=== PATIENT | female | born 1930 | race Hispanic/Latino ===

== ENCOUNTER 2017-12-20 22:19 | Observation (INO) | payer OTHER ==
[~2017-12-20] VITALS: Ht 154.9 cm; Wt 74.7 kg
[2017-12-20] MEDS ORDERED: ONDANSETRON HCL 4 MG/2 ML VIAL ONE ×2 (23:08→23:58)
[2017-12-20 23:16] LABS: BASOPHILS % (AUTO) 0.4 % (0.0-5.0); CREATININE 1.6 mg/dL (0.5-1.5); HEMATOCRIT 32.9 % (36-48); LYMPHOCYTES % (AUTO) 8.3 % (21.0-51.0); MEAN CORPUSCULAR HGB CONC 33.6 g/dL (32.0-36.0); MEAN CORPUSCULAR VOLUME 80.4 fL (79-99); MONOCYTES % (AUTO) 6.5 % (3.0-13.0); NEUTROPHILS % (AUTO) 84.8 % (40.0-77.0); NUCLEATED RED BLOOD CELLS 0.1 % (0.0-0.19); PLATELET COUNT (AUTO) 231 K/uL (130-400); POTASSIUM 4.1 mmol/L (3.5-5.1); RED BLOOD CELL COUNT(AUTO) 4.09 MIL/uL (4.00-5.50); RED CELL DISTRIBUTION WIDTH 15.3 % (11.0-15.5); WHITE BLOOD COUNT (AUTO) 9.2 K/uL (4.8-10.8)
[2017-12-20 23:17] LABS: INR 0.93 (0.85-1.15); PARTIAL THROMBOPLASTIN TIME 26.6 SEC (26.3-35.5); PROTHROMBIN TIME 9.8 SEC (9.6-11.6)
[2017-12-20 23:20] LABS: ALBUMIN 2.9 g/dL (3.5-5.0); BILIRUBIN,TOTAL 0.3 mg/dL (0.2-1.0); TOTAL PROTEIN, SERUM 6.6 g/dL (6.0-8.3)
[2017-12-20] MEDS ORDERED: CEFTRIAXONE SODIUM 1 GM ONE (23:58)
[2017-12-20] MEDS ORDERED: SODIUM CHLORIDE 0.9% 1000ML 1,000 ML IV ONE (23:58)
[2017-12-20] MEDS ORDERED: SODIUM CHLORIDE 0.9% 100 ML IV ONE (23:59)
[2017-12-21] MEDS ORDERED: IPRATROPIUM/ALBUTEROL SULFATE 3 ML SOLUTION IH ONE ×2 (00:03→03:43)
[2017-12-21 00:13] LABS: OCCULT BLOOD,GASTRIC FLUID NEGATIVE (NEGATIVE)
[2017-12-21] MEDS ORDERED: SODIUM CHLORIDE 0.9% 100 ML IV ONE (00:22)
[2017-12-21] MEDS ORDERED: OCTREOTIDE ACETATE 100 MCG/ML AMP ONE (00:23)
[2017-12-21 01:26] VITALS: BP 150/60
[2017-12-21] MEDS ORDERED: SODIUM CHLORIDE 0.9% 1000ML 1,000 ML IV SCH (01:32)
[2017-12-21] MEDS ORDERED: CEFTRIAXONE 1GM/D5W 50ML 50 ML IV SCH (01:45)
[2017-12-21] MEDS ORDERED: AZITHROMYCIN 500MG+NS 250ML 250 ML IV SCH (01:45)
[2017-12-21] MEDS ORDERED: ACETAMINOPHEN 325 MG TAB PO PRN ×2 (01:45)
[2017-12-21] MEDS ORDERED: POTASSIUM CHLORIDE 10% ELIXIR 20 MEQ/15 ML UDCUP PO PRN (01:45)
[2017-12-21] MEDS ORDERED: ONDANSETRON HCL 4 MG/2 ML VIAL IV PRN (01:45)
[2017-12-21] MEDS ORDERED: POTASSIUM CHLORIDE 20MEQ/100ML 100 ML IV PRN (01:45)
[2017-12-21] MEDS ORDERED: POTASSIUM CHLORIDE 20 MEQ ERTAB PO PRN (01:45)
[2017-12-21] MEDS ORDERED: GUAIFENESIN-DM 200/20 MG 10 ML PO PRN (01:45)
[2017-12-21] MEDS ORDERED: HYDRALAZINE HCL 20 MG/ML VIAL IV PRN (01:45)
[2017-12-21] MEDS ORDERED: LIDOCAINE HCL-MPF 1% 2ML VIAL IVP PRN (01:45)
[2017-12-21] MEDS ORDERED: SODIUM CHLORIDE 0.9% 1000ML 1,000 ML IV ONE (02:19)
[2017-12-21] MEDS ORDERED: AZITHROMYCIN 500MG+NS 250ML 250 ML IV ONE (02:20)
[2017-12-21] MEDS ORDERED: OSELTAMIVIR PHOSPHATE 75 MG CAP ONE (02:21)
[2017-12-21 03:05] VITALS: BP 106/70
[2017-12-21 03:46] LABS: HEMATOCRIT 27.8 % (36-48); MEAN CORPUSCULAR HEMOGLOBIN 27.9 pg (27.0-33.0); MEAN CORPUSCULAR HGB CONC 34.4 g/dL (32.0-36.0); MEAN CORPUSCULAR VOLUME 81.1 fL (79-99); PLATELET COUNT (AUTO) 230 K/uL (130-400); RED BLOOD CELL COUNT(AUTO) 3.43 MIL/uL (4.00-5.50); RED CELL DISTRIBUTION WIDTH 15.5 % (11.0-15.5); WHITE BLOOD COUNT (AUTO) 8.5 K/uL (4.8-10.8)
[2017-12-21 03:50] LABS: CREATININE 1.7 mg/dL (0.5-1.5); POTASSIUM 3.7 mmol/L (3.5-5.1)
[2017-12-21] MEDS ORDERED: CEFTRIAXONE SODIUM 1 GM IVP SCH (04:00)
[2017-12-21] MEDS: IPRATROPIUM/ALBUTEROL SULFATE 3 ML SOLUTION IH SCH ×3 (06:06→17:59)
[2017-12-21] MEDS: INSULIN HUMULIN R 100 UNIT/ML 3ML SQ SCH ×3 (06:47→16:30)
[2017-12-21 08:00] VITALS: BP 121/67
[2017-12-21] MEDS ORDERED: FERR325T22 PO (08:28)
[2017-12-21] MEDS ORDERED: LEVO25TA54 PO (08:28)
[2017-12-21] MEDS ORDERED: FLUO20TA29 PO (08:28)
[2017-12-21] MEDS ORDERED: TRAM-355 PO (08:28)
[2017-12-21] MEDS ORDERED: METOPROLOL ER 25MG PO (08:28)
[2017-12-21] MEDS ORDERED: LOSA50TA37 PO (08:28)
[2017-12-21] MEDS ORDERED: FOLI1TAB15 PO (08:28)
[2017-12-21] MEDS ORDERED: CIPR-278 PO (08:28)
[2017-12-21] MEDS ORDERED: SIMV10TA6 PO (08:28)
[2017-12-21] MEDS ORDERED: PANT40TA25 PO (08:28)
[2017-12-21] MEDS ORDERED: GABA-529 PO (08:28)
[2017-12-21] MEDS ORDERED: METF-526 PO (08:28)
[2017-12-21] MEDS ORDERED: SULF1TAB42 PO (08:28)
[2017-12-21] MEDS ORDERED: OSELTAMIVIR PHOSPHATE 75 MG CAP PO SCH (09:00)
[2017-12-21] MEDS ORDERED: FAMOTIDINE 20MG TAB 20 MG TAB PO SCH ×2 (09:00→10:18)
[2017-12-21] MEDS ORDERED: OSEL75 PO (10:17)
[2017-12-21] MEDS ORDERED: LEVO500T2 PO (10:17)
[2017-12-21 11:24] VITALS: BP 134/87
[2017-12-21 15:56] VITALS: BP 117/52
[2017-12-21] MEDS ORDERED: SULFAMETHOX-TMP DS 800/160 TAB PO SCH (21:00)
[2017-12-21] MEDS ORDERED: ATORVASTATIN CALCIUM 10 MG TABLET PO SCH (21:00)
[2017-12-21] MEDS ORDERED: GABAPENTIN 100 MG CAPSULE PO SCH (21:00)
[2017-12-22] MEDS ORDERED: LEVOTHYROXINE 25 MCG TABLET PO SCH (07:30)
[2017-12-22] MEDS ORDERED: METFORMIN HCL 500 MG TAB.SR.24H PO SCH (08:00)
[2017-12-22] MEDS ORDERED: PANTOPRAZOLE SODIUM 40 MG TABLET.DR PO SCH (09:00)
[2017-12-22] MEDS ORDERED: FOLIC ACID 1 MG TABLET PO SCH (09:00)
[2017-12-22] MEDS ORDERED: FERROUS SULFATE 325 MG TABLET.DR PO SCH (09:00)
[2017-12-22] MEDS ORDERED: FLUOXETINE HCL 20 MG CAPSULE PO SCH (09:00)
[2017-12-22] MEDS ORDERED: LOSARTAN 50 MG TABLET PO SCH (09:00)
[2017-12-22] MEDS ORDERED: METOPROLOL TARTRATE 25 MG TAB PO SCH (09:00)
[2018-03-28] MEDS ORDERED: FERR15DR21 PO (12:17)
== END 2017-12-21 18:59 | disposition home or self-care (01) ==
LOC: EDH 22:19 → EDHIP 12-21 00:11 → 3BH 12-21 00:31
PROVIDERS: ADMIT Internal Medicine; ATTEND Internal Medicine
DX: J10.1 Influenza due to other identified influenza virus with other respiratory manifestations (principal); J20.9 Acute bronchitis, unspecified; N17.9 Acute kidney failure, unspecified; E11.65 Type 2 diabetes mellitus with hyperglycemia; E78.5 Hyperlipidemia, unspecified; I10 Essential (primary) hypertension; M81.0 Age-related osteoporosis without current pathological fracture
CPT/HCPCS: 36415 ×2; 71045; 71250; 80048; 80053; 82271 ×2; 82550; 82948 ×3; 83880; 84484; 85025; 85027; 85610; 85730; 87804 ×2; 93005; 94640 ×4; 94664; 97161; 99291; G0378 ×19; G8978; G8979; G8980; G8981; G8982; G8983; J0456; J0696 ×2; J2354; J2405 ×2; J7030 ×2

== ENCOUNTER 2017-12-29 19:19 | Observation (INO) | payer OTHER ==
[~2017-12-29] VITALS: Ht 152.4 cm; Wt 76.3 kg
[~2017-12-29 19:19] MED LIST: FERR325T22 PO; FLUO20TA29 PO; FOLI1TAB15 PO; GABA-529 PO; LEVO25TA54 PO; LEVO500T2 PO; LOSA50TA37 PO; METF-526 PO; METOPROLOL ER 25MG PO; OSEL75 PO; PANT40TA25 PO; SIMV10TA6 PO; TRAM-355 PO
[2017-12-29 20:03] LABS: BILIRUBIN,URINE Negative (NEGATIVE); COLOR,URINE Yellow (YELLOW); GLUCOSE, URINE (UA) Negative (NEGATIVE); KETONES,URINE Negative (NEGATIVE); LEUKOCYTE ESTERASE ,URINE Moderate (NEGATIVE); NITRATE,URINE Negative (NEGATIVE); OCCULT BLOOD,URINE Negative (NEGATIVE); PROTEIN,URINE Negative (NEGATIVE); UROBILINOGEN,URINE 0.2 mg/dL (0.2-1.0)
[2017-12-29 20:04] LABS: BASOPHILS % (AUTO) 0.3 % (0.0-5.0); HEMATOCRIT 28.9 % (36-48); MEAN CORPUSCULAR HEMOGLOBIN 29.4 pg (27.0-33.0); MEAN CORPUSCULAR HGB CONC 36.6 g/dL (32.0-36.0); MEAN CORPUSCULAR VOLUME 80.2 fL (79-99); MONOCYTES % (AUTO) 6.1 % (3.0-13.0); NEUTROPHILS % (AUTO) 89.6 % (40.0-77.0); PLATELET COUNT (AUTO) 333 K/uL (130-400); RED BLOOD CELL COUNT(AUTO) 3.61 MIL/uL (4.00-5.50); RED CELL DISTRIBUTION WIDTH 15.9 % (11.0-15.5); WHITE BLOOD COUNT (AUTO) 20.6 K/uL (4.8-10.8)
[2017-12-29 20:06] LABS: APPEARANCE,URINE SLIGHTLY CLOUDY (CLEAR)
[2017-12-29 20:22] LABS: BACTERIA,URINE Few /HPF (None Seen); CREATININE 1.9 mg/dL (0.5-1.5); POTASSIUM 3.4 mmol/L (3.5-5.1); RBC,URINE 0-1 /HPF (0-1); SQUAMOUS EPITHELIAL CELL,UR Few /LPF (0-2)
[2017-12-29 20:23] LABS: AMORPHOUS SEDIMENT,UR Rare /LPF (None Seen)
[2017-12-29 20:26] LABS: ALBUMIN 2.7 g/dL (3.5-5.0); BILIRUBIN,TOTAL 0.4 mg/dL (0.2-1.0); TOTAL PROTEIN, SERUM 6.2 g/dL (6.0-8.3)
[2017-12-29] MEDS ORDERED: SODIUM CHLORIDE 0.9% 1000ML 2,000 ML IV ONE (20:26)
[2017-12-29] MEDS ORDERED: SODIUM CHLORIDE 0.9% 500ML 500 ML IV ONE (20:26)
[2017-12-29] MEDS ORDERED: MEROPENEM 1 GM VIAL ONE (20:28)
[2017-12-29] MEDS ORDERED: WATER FOR INJECTION,STERILE 20 ML VIAL ONE (20:28)
[2017-12-29] MEDS ORDERED: ONDANSETRON HCL 4 MG/2 ML VIAL ONE (21:28)
[2017-12-29] MEDS ORDERED: MORPHINE SULFATE 2 MG/ML 1ML SYG ONE (21:28)
[2017-12-29] MEDS ORDERED: NITROGLYCERIN 0.4 MG SL TAB SL PRN (23:45)
[2017-12-29] MEDS ORDERED: LACTULOSE 20 GM/30 ML UDCUP PO PRN (23:45)
[2017-12-29] MEDS ORDERED: SODIUM CHLORIDE 0.9% 1000ML 1,000 ML IV SCH (23:45)
[2017-12-29] MEDS ORDERED: LEVOFLOXACIN 500 MG/D5W 100 ML 100 ML IV SCH (23:45)
[2017-12-29] MEDS ORDERED: ACETAMINOPHEN 325 MG TAB PO PRN (23:45)
[2017-12-29] MEDS ORDERED: GUAIFENESIN-DM 200/20 MG 10 ML PO PRN (23:45)
[2017-12-29] MEDS ORDERED: CLONIDINE HCL 0.1 MG TABLET PO PRN (23:45)
[2017-12-29 23:46] VITALS: BP 133/72
[2017-12-30 00:01] LABS: BAND NEUTROPHILS % (MANUAL) 4 % (0-2); LYMPHOCYTES % (MANUAL) 5 % (22-44); MAN.DIFF COMMENT-IMPRESSION MANUAL DIFFERENTIAL; MONOCYTES % (MANUAL) 9 % (2-9); SEGMENTED NEUTROPHILS % 82 % (40-70)
[2017-12-30 00:02] LABS: PLATELET MORPHOLOGY COMMENT ADEQUATE
[2017-12-30] MEDS: IPRATROPIUM/ALBUTEROL SULFATE 3 ML SOLUTION IH SCH ×4 (00:05→18:44)
[2017-12-30] MEDS ORDERED: DOXY100V2 IV (00:11)
[2017-12-30] MEDS ORDERED: ASPI-555 PO (00:11)
[2017-12-30] MEDS ORDERED: CETI10CA5 PO (00:11)
[2017-12-30] MEDS ORDERED: POTASSIUM CHLORIDE 20 MEQ ERTAB PO PRN (00:15)
[2017-12-30] MEDS ORDERED: POTASSIUM CHLORIDE 20MEQ/100ML 100 ML IV PRN (00:15)
[2017-12-30] MEDS ORDERED: GLUCAGON 1MG KIT 1 MG ML IM PRN (00:15)
[2017-12-30] MEDS ORDERED: LIDOCAINE HCL-MPF 1% 2ML VIAL IVP PRN (00:15)
[2017-12-30] MEDS ORDERED: DEXTROSE 50%-WATER 50 ML DISP.SYRIN IV PRN (00:15)
[2017-12-30] MEDS ORDERED: POTASSIUM CHLORIDE 10% ELIXIR 20 MEQ/15 ML UDCUP PO PRN (00:15)
[2017-12-30 03:33] VITALS: BP 119/53
[2017-12-30 05:20] LABS: MEAN CORPUSCULAR HEMOGLOBIN 27.1 pg (27.0-33.0); MEAN CORPUSCULAR HGB CONC 33.4 g/dL (32.0-36.0); MEAN CORPUSCULAR VOLUME 81.1 fL (79-99); PLATELET COUNT (AUTO) 336 K/uL (130-400); RED BLOOD CELL COUNT(AUTO) 3.58 MIL/uL (4.00-5.50); RED CELL DISTRIBUTION WIDTH 16.7 % (11.0-15.5); WHITE BLOOD COUNT (AUTO) 20.4 K/uL (4.8-10.8)
[2017-12-30] MEDS: INSULIN HUMULIN R 100 UNIT/ML 3ML SQ SCH ×4 (05:30→21:00)
[2017-12-30 05:43] LABS: CARBON DIOXIDE 25 mmol/L (21-32); CHLORIDE 101 mmol/L (101-111); CREATINE KINASE MB < 0.5 ng/mL (0.5-3.6); CREATINE KINASE, TOTAL 14 U/L (21-232); CREATININE 1.5 mg/dL (0.5-1.5); GLOMERULAR FILTR. RATE CALC 35 mL/min (>60); GLUCOSE,RANDOM 159 mg/dL (70-105); MYOGLOBIN 42 ng/mL (10-92); POTASSIUM 3.5 mmol/L (3.5-5.1); SODIUM SERUM 138 mmol/L (136-145); TROPONIN I < 0.04 ng/mL (0.00-0.06); UREA NITROGEN, BLOOD 37 mg/dL (7-18)
[2017-12-30 07:00] VITALS: BP 104/48
[2017-12-30] MEDS: METOPROLOL TARTRATE 25 MG TAB PO SCH ×2 (09:39→21:42)
[2017-12-30] MEDS: FLUOXETINE HCL 20 MG CAPSULE PO SCH (09:39)
[2017-12-30] MEDS: ACETAMINOPHEN 325 MG TAB PO PRN ×2 (09:39→15:05)
[2017-12-30] MEDS: FAMOTIDINE 20MG TAB 20 MG TAB PO SCH (09:39)
[2017-12-30] MEDS: FERROUS SULFATE 325 MG TABLET.DR PO SCH (09:39)
[2017-12-30] MEDS: ENOXAPARIN SODIUM 30 MG/0.3 ML SQ SCH (09:40)
[2017-12-30] MEDS ORDERED: ONDANSETRON HCL 4 MG/2 ML VIAL ONE (09:51)
[2017-12-30 12:07] VITALS: BP 144/66
[2017-12-30 16:00] VITALS: BP 138/59
[2017-12-30 19:44] VITALS: BP 128/70
[2017-12-30] MEDS ORDERED: ATORVASTATIN CALCIUM 10 MG TABLET PO SCH (21:00)
[2017-12-30] MEDS: GABAPENTIN 100 MG CAPSULE PO SCH (21:42)
[2017-12-30 23:48] VITALS: BP 133/69
[2017-12-31] MEDS: IPRATROPIUM/ALBUTEROL SULFATE 3 ML SOLUTION IH SCH ×3 (00:25→11:09)
[2017-12-31 03:39] VITALS: BP 126/55
[2017-12-31 04:50] LABS: MEAN CORPUSCULAR HGB CONC 34.1 g/dL (32.0-36.0); PLATELET COUNT (AUTO) 309 K/uL (130-400); RED BLOOD CELL COUNT(AUTO) 3.05 MIL/uL (4.00-5.50); RED CELL DISTRIBUTION WIDTH 16.6 % (11.0-15.5); WHITE BLOOD COUNT (AUTO) 12.8 K/uL (4.8-10.8)
[2017-12-31 04:58] LABS: CREATININE 1.2 mg/dL (0.5-1.5); POTASSIUM 3.8 mmol/L (3.5-5.1)
[2017-12-31 05:44] LABS: B-TYPE NATRIURETIC PEPTIDE 51 pg/mL (0-100)
[2017-12-31] MEDS: INSULIN HUMULIN R 100 UNIT/ML 3ML SQ SCH (06:46)
[2017-12-31 07:00] VITALS: BP 134/61
[2017-12-31] MEDS ORDERED: LEVOTHYROXINE 25 MCG TABLET PO SCH (07:30)
[2017-12-31] MEDS: FERROUS SULFATE 325 MG TABLET.DR PO SCH (08:00)
[2017-12-31] MEDS ORDERED: LOSARTAN 50 MG TABLET PO SCH (09:00)
[2017-12-31] MEDS ORDERED: FOLIC ACID 1 MG TABLET PO SCH (09:00)
[2017-12-31] MEDS ORDERED: ASPIRIN 81 MG EC TAB PO SCH (09:00)
[2017-12-31] MEDS ORDERED: CETIRIZINE HCL 5 MG TABLET PO SCH (09:00)
[2017-12-31] MEDS ORDERED: PANTOPRAZOLE SODIUM 40 MG TABLET.DR PO SCH (09:00)
[2017-12-31] MEDS: FLUOXETINE HCL 20 MG CAPSULE PO SCH (09:33)
[2017-12-31] MEDS: METOPROLOL TARTRATE 25 MG TAB PO SCH (09:34)
[2017-12-31] MEDS: FAMOTIDINE 20MG TAB 20 MG TAB PO SCH (09:34)
[2017-12-31] MEDS: GABAPENTIN 100 MG CAPSULE PO SCH (09:34)
[2017-12-31] MEDS: ENOXAPARIN SODIUM 30 MG/0.3 ML SQ SCH (09:47)
[2017-12-31 11:00] VITALS: BP 116/48
[2018-03-28] MEDS ORDERED: FERR15DR21 PO (12:17)
== END 2017-12-31 17:45 ==
LOC: EDH 19:19 → EDHIP 22:44 → 2AH 23:17
PROVIDERS: ADMIT Family Medicine; ATTEND Family Medicine
DX: R53.1 Weakness (principal); N39.0 Urinary tract infection, site not specified; M54.6 Pain in thoracic spine; E86.0 Dehydration; J40 Bronchitis, not specified as acute or chronic; J11.1 Influenza due to unidentified influenza virus with other respiratory manifestations; J90 Pleural effusion, not elsewhere classified; K21.9 Gastro-esophageal reflux disease without esophagitis; I25.10 Atherosclerotic heart disease of native coronary artery without angina pectoris; I10 Essential (primary) hypertension; E78.5 Hyperlipidemia, unspecified; E11.9 Type 2 diabetes mellitus without complications; M81.0 Age-related osteoporosis without current pathological fracture
CPT/HCPCS: 36415 ×3; 71045; 72128; 78582; 80048 ×2; 80053; 81001; 82550; 82553; 82948 ×6; 83605 ×2; 83874; 83880 ×2; 84484; 85007; 85025; 85027 ×2; 85651; 87040 ×2; 87088; 92610; 93005 ×2; 94640 ×7; 94664; 96361 ×2; 96365; 96372 ×2; 97116; 97161; 99285; A9540; A9558; G0378 ×43; G8978; G8979; G8980; G8981; G8982; G8983; J1650 ×2; J1956; J2185; J2405 ×2; J7030; J7040

== ENCOUNTER 2018-01-16 18:01 | Inpatient (IN) | payer OTHER ==
[~2018-01-16] VITALS: Ht 152.4 cm; Wt 74.9 kg
[~2018-01-16 18:01] MED LIST changes: +ASPI-555 PO; +CETI10CA5 PO; +DOXY100V2 IV; -LEVO500T2 PO; -OSEL75 PO
[2018-01-16] MEDS ORDERED: LACTATED RINGERS 1000ML 1,000 ML IV ONE (22:18)
[2018-01-16] MEDS: INSULIN HUMULIN R 100 UNIT/ML 3ML SQ SCH (23:45)
[2018-01-16] MEDS ORDERED: POTASSIUM CHLORIDE 20 MEQ ERTAB PO PRN (23:45)
[2018-01-16] MEDS ORDERED: GLUCAGON 1MG KIT 1 MG ML IM PRN (23:45)
[2018-01-16] MEDS ORDERED: DEXTROSE 50%-WATER 50 ML DISP.SYRIN IV PRN (23:45)
[2018-01-16] MEDS ORDERED: HYDRALAZINE HCL 20 MG/ML VIAL IV PRN (23:45)
[2018-01-16] MEDS ORDERED: POTASSIUM CHLORIDE 10% ELIXIR 20 MEQ/15 ML UDCUP PO PRN (23:45)
[2018-01-16] MEDS ORDERED: ONDANSETRON HCL 4 MG/2 ML VIAL IV PRN (23:45)
[2018-01-17] VITALS (7 sets, daily range): BP systolic 129–163; BP diastolic 52–74
[2018-01-17] LABS: BASOPHILS % (AUTO) 1.2 % (0.0-5.0); EOSINOPHILS % (AUTO) 5.5 % (0.0-8.0); HEMATOCRIT 24.9 % (36-48); LYMPHOCYTES % (AUTO) 20.6 % (21.0-51.0); MEAN CORPUSCULAR HEMOGLOBIN 27.1 pg (27.0-33.0); MEAN CORPUSCULAR HGB CONC 33.4 g/dL (32.0-36.0); MEAN CORPUSCULAR VOLUME 81.1 fL (79-99); MONOCYTES % (AUTO) 7.1 % (3.0-13.0); NEUTROPHILS % (AUTO) 65.6 % (40.0-77.0); PLATELET COUNT (AUTO) 293 K/uL (130-400); RED BLOOD CELL COUNT(AUTO) 3.07 MIL/uL (4.00-5.50); RED CELL DISTRIBUTION WIDTH 16.1 % (11.0-15.5); WHITE BLOOD COUNT (AUTO) 5.2 K/uL (4.8-10.8)
[2018-01-17 00:17] LABS: INR 1.04 (0.85-1.15); PROTHROMBIN TIME 10.9 SEC (9.6-11.6)
[2018-01-17 00:19] LABS: ALBUMIN 2.3 g/dL (3.5-5.0); BILIRUBIN,TOTAL 0.4 mg/dL (0.2-1.0); TOTAL PROTEIN, SERUM 5.9 g/dL (6.0-8.3)
[2018-01-17 00:22] LABS: POTASSIUM 2.9 mmol/L (3.5-5.1)
[2018-01-17] MEDS: LIDOCAINE HCL-MPF 1% 2ML VIAL IVP PRN ×2 (00:42→06:37)
[2018-01-17] MEDS: POTASSIUM CHLORIDE 20MEQ/100ML 100 ML IV PRN ×2 (00:42→06:38)
[2018-01-17] MEDS: SODIUM CHLORIDE 0.9% 1000ML 1,000 ML IV SCH ×2 (00:48→18:47)
[2018-01-17] MEDS: INSULIN HUMULIN R 100 UNIT/ML 3ML SQ SCH ×4 (05:45→22:01)
[2018-01-17] MEDS ORDERED: ZINC56.7 TP (08:22)
[2018-01-17] MEDS ORDERED: ACET-2247 PO (08:22)
[2018-01-17] MEDS ORDERED: GUAIFDM PO (08:22)
[2018-01-17] MEDS ORDERED: LACT10SO9 PO (08:22)
[2018-01-17] MEDS ORDERED: LORA10CA9 PO (08:22)
[2018-01-17] MEDS ORDERED: ALBU2.5V2 IH (08:22)
[2018-01-17] MEDS ORDERED: ONDA4TAB4 PO (08:22)
[2018-01-17] MEDS ORDERED: FOLI1TAB15 PO (08:22)
[2018-01-17] MEDS ORDERED: TRAMADOL /APAP 37.5MG/325MG TAB PO PRN (08:45)
[2018-01-17] MEDS: FLUOXETINE HCL 20 MG CAPSULE PO SCH (09:00)
[2018-01-17] MEDS: GABAPENTIN 100 MG CAPSULE PO SCH ×2 (09:00→21:00)
[2018-01-17] MEDS: FOLIC ACID 1 MG TABLET PO SCH (09:00)
[2018-01-17] MEDS: LOSARTAN 50 MG TABLET PO SCH (09:00)
[2018-01-17] MEDS: METOPROLOL TARTRATE 25 MG TAB PO SCH ×2 (09:00→21:00)
[2018-01-17] MEDS: FLUCONAZOLE 200 MG/NS 100 ML 100 ML IV SCH (10:35)
[2018-01-17] MEDS: FAMOTIDINE/PF 20 MG/2 ML VIAL IV SCH ×2 (10:35→22:01)
[2018-01-17] MEDS: NYSTATIN 100000 UNIT/ML 5ML UDCUP PO SCH ×3 (13:00→22:01)
[2018-01-17] MEDS: ATORVASTATIN CALCIUM 10 MG TABLET PO SCH (21:00)
[2018-01-18] VITALS (22 sets, daily range): BP systolic 132–169; BP diastolic 50–71
[2018-01-18 04:35] LABS: HEMATOCRIT 24.6 % (36-48); PLATELET COUNT (AUTO) 265 K/uL (130-400); RED BLOOD CELL COUNT(AUTO) 3.07 MIL/uL (4.00-5.50); RED CELL DISTRIBUTION WIDTH 16.2 % (11.0-15.5); WHITE BLOOD COUNT (AUTO) 5.2 K/uL (4.8-10.8)
[2018-01-18 04:40] LABS: CREATININE 0.8 mg/dL (0.5-1.5); POTASSIUM 3.1 mmol/L (3.5-5.1)
[2018-01-18] MEDS: LEVOTHYROXINE 25 MCG TABLET PO SCH (04:54)
[2018-01-18] MEDS: INSULIN HUMULIN R 100 UNIT/ML 3ML SQ SCH ×3 (05:45→23:45)
[2018-01-18] MEDS: SODIUM CHLORIDE 0.9% 1000ML 1,000 ML IV SCH (06:07)
[2018-01-18] MEDS: POTASSIUM CHLORIDE 20MEQ/100ML 100 ML IV PRN ×2 (06:38→12:24)
[2018-01-18] MEDS: LOSARTAN 50 MG TABLET PO SCH (09:00)
[2018-01-18] MEDS: FOLIC ACID 1 MG TABLET PO SCH (09:00)
[2018-01-18] MEDS: GABAPENTIN 100 MG CAPSULE PO SCH ×2 (09:00→21:00)
[2018-01-18] MEDS: METOPROLOL TARTRATE 25 MG TAB PO SCH ×2 (09:00→21:00)
[2018-01-18] MEDS: FLUOXETINE HCL 20 MG CAPSULE PO SCH (09:00)
[2018-01-18] MEDS: FAMOTIDINE/PF 20 MG/2 ML VIAL IV SCH ×3 (09:34→21:36)
[2018-01-18] MEDS: FLUCONAZOLE 200 MG/NS 100 ML 100 ML IV SCH (09:34)
[2018-01-18] MEDS: NYSTATIN 100000 UNIT/ML 5ML UDCUP PO SCH ×3 (09:37→21:00)
[2018-01-18] MEDS ORDERED: FENTANYL CITRATE PF 50 MCG/1 ML 2ML VIAL ONE (14:56)
[2018-01-18] MEDS ORDERED: PROPOFOL 10 MG/ML 20ML VIAL IV ONE (14:57)
[2018-01-18] MEDS ORDERED: LIDOCAINE HCL 2% 20ML ONE (14:57)
[2018-01-18] MEDS: MORPHINE SULFATE 2 MG/ML 1ML SYG IV PRN (16:34)
[2018-01-18] MEDS: ATORVASTATIN CALCIUM 10 MG TABLET PO SCH (21:00)
[2018-01-18] MEDS ORDERED: D5W-1/2 NS/20MEQ KCL 1,000 ML IV SCH (22:45)
[2018-01-18] MEDS ORDERED: DEXTROSE 5 %-0.45 % NACL 0 ML IV ONE (22:46)
[2018-01-19 04:11] VITALS: BP 138/62
[2018-01-19] MEDS: INSULIN HUMULIN R 100 UNIT/ML 3ML SQ SCH ×4 (05:45→23:45)
[2018-01-19] MEDS: LEVOTHYROXINE 25 MCG TABLET PO SCH (06:03)
[2018-01-19 07:08] LABS: CREATININE 0.8 mg/dL (0.5-1.5); POTASSIUM 3.5 mmol/L (3.5-5.1)
[2018-01-19 08:00] VITALS: BP 179/70
[2018-01-19] MEDS: FLUCONAZOLE 200 MG/NS 100 ML 100 ML IV SCH (08:04)
[2018-01-19] MEDS: GABAPENTIN 100 MG CAPSULE PO SCH ×2 (09:00→20:12)
[2018-01-19] MEDS: METOPROLOL TARTRATE 25 MG TAB PO SCH ×2 (09:00→20:12)
[2018-01-19] MEDS: FOLIC ACID 1 MG TABLET PO SCH (09:00)
[2018-01-19] MEDS: LOSARTAN 50 MG TABLET PO SCH (09:00)
[2018-01-19] MEDS ORDERED: METOPROLOL TARTRATE 1 MG/ML 5ML VIAL IV PRN (09:00)
[2018-01-19 11:24] VITALS: BP 153/71
[2018-01-19] MEDS: FLUOXETINE HCL 20 MG CAPSULE PO SCH (12:18)
[2018-01-19] MEDS: CLINIMIX E 4.25%-5% SOLUTION 2,000 ML IV SCH (12:32)
[2018-01-19] MEDS: FAT EMULSIONS 20% 250ML 250 ML IV SCH (12:32)
[2018-01-19] MEDS: NYSTATIN 100000 UNIT/ML 5ML UDCUP PO SCH ×4 (12:33→20:12)
[2018-01-19 15:49] VITALS: BP 180/77
[2018-01-19] MEDS: MORPHINE SULFATE 2 MG/ML 1ML SYG IV PRN (17:02)
[2018-01-19 20:00] VITALS: BP 151/67
[2018-01-19] MEDS: ATORVASTATIN CALCIUM 10 MG TABLET PO SCH (20:12)
[2018-01-19 23:52] VITALS: BP 136/60
[2018-01-20] MEDS: LEVOTHYROXINE 25 MCG TABLET PO SCH (03:57)
[2018-01-20 04:00] VITALS: BP 125/57
[2018-01-20] MEDS: INSULIN HUMULIN R 100 UNIT/ML 3ML SQ SCH ×4 (05:45→23:45)
[2018-01-20 06:43] LABS: HEMATOCRIT 23.9 % (36-48); MEAN CORPUSCULAR HEMOGLOBIN 28.4 pg (27.0-33.0); MEAN CORPUSCULAR HGB CONC 36.2 g/dL (32.0-36.0); MEAN CORPUSCULAR VOLUME 78.3 fL (79-99); PLATELET COUNT (AUTO) 236 K/uL (130-400); RED BLOOD CELL COUNT(AUTO) 3.05 MIL/uL (4.00-5.50); RED CELL DISTRIBUTION WIDTH 16.5 % (11.0-15.5); WHITE BLOOD COUNT (AUTO) 4.5 K/uL (4.8-10.8)
[2018-01-20 06:48] LABS: CREATININE 0.8 mg/dL (0.5-1.5); POTASSIUM 3.2 mmol/L (3.5-5.1)
[2018-01-20 08:22] VITALS: BP 135/60
[2018-01-20 08:56] LABS: INR 1.07 (0.85-1.15); PARTIAL THROMBOPLASTIN TIME 28.9 SEC (26.3-35.5); PROTHROMBIN TIME 11.2 SEC (9.6-11.6)
[2018-01-20] MEDS: METOPROLOL TARTRATE 25 MG TAB PO SCH ×2 (09:00→21:00)
[2018-01-20] MEDS: PANTOPRAZOLE 40 MG/VIAL IVP SCH ×2 (09:00→14:32)
[2018-01-20] MEDS: GABAPENTIN 100 MG CAPSULE PO SCH ×2 (09:00→21:00)
[2018-01-20] MEDS ORDERED: PANTOPRAZOLE SODIUM 40 MG TABLET.DR PO SCH (09:00)
[2018-01-20] MEDS: LOSARTAN 50 MG TABLET PO SCH (09:00)
[2018-01-20] MEDS: FOLIC ACID 1 MG TABLET PO SCH (09:00)
[2018-01-20] MEDS: CLINIMIX E 4.25%-5% SOLUTION 2,000 ML IV SCH ×2 (09:00→19:45)
[2018-01-20] MEDS: FLUOXETINE HCL 20 MG CAPSULE PO SCH (09:00)
[2018-01-20] MEDS: FLUCONAZOLE 200 MG/NS 100 ML 100 ML IV SCH ×2 (09:00→14:32)
[2018-01-20] MEDS: NYSTATIN 100000 UNIT/ML 5ML UDCUP PO SCH ×4 (09:00→21:00)
[2018-01-20] MEDS: FAT EMULSIONS 20% 250ML 250 ML IV SCH ×2 (10:00→18:01)
[2018-01-20 17:44] VITALS: BP 135/62
[2018-01-20 20:00] VITALS: BP 147/58
[2018-01-20] MEDS: ATORVASTATIN CALCIUM 10 MG TABLET PO SCH (21:00)
[2018-01-20 23:55] VITALS: BP 139/82
[2018-01-21 04:00] VITALS: BP 129/61
[2018-01-21 05:19] LABS: HEMATOCRIT 25.2 % (36-48); MEAN CORPUSCULAR HEMOGLOBIN 26.7 pg (27.0-33.0); MEAN CORPUSCULAR HGB CONC 33.7 g/dL (32.0-36.0); MEAN CORPUSCULAR VOLUME 79.4 fL (79-99); PLATELET COUNT (AUTO) 209 K/uL (130-400); RED BLOOD CELL COUNT(AUTO) 3.18 MIL/uL (4.00-5.50); RED CELL DISTRIBUTION WIDTH 16.3 % (11.0-15.5); WHITE BLOOD COUNT (AUTO) 4.6 K/uL (4.8-10.8)
[2018-01-21 05:32] LABS: BAND NEUTROPHILS % (MANUAL) 1 % (0-2); EOSINOPHILS % (MANUAL) 4 % (1-6); LYMPHOCYTES % (MANUAL) 11 % (22-44); MAN.DIFF COMMENT-IMPRESSION MANUAL DIFFERENTIAL; MONOCYTES % (MANUAL) 8 % (2-9); PLATELET MORPHOLOGY COMMENT ADEQUATE; SEGMENTED NEUTROPHILS % 76 % (40-70)
[2018-01-21 05:37] LABS: ALBUMIN 2.1 g/dL (3.5-5.0); BILIRUBIN,TOTAL 0.4 mg/dL (0.2-1.0); CREATININE 0.9 mg/dL (0.5-1.5); MAGNESIUM 1.3 mg/dL (1.80-2.40); PHOSPHORUS 3.2 mg/dL (2.5-4.9); POTASSIUM 3.3 mmol/L (3.5-5.1); TOTAL PROTEIN, SERUM 5.5 g/dL (6.0-8.3)
[2018-01-21] MEDS: INSULIN HUMULIN R 100 UNIT/ML 3ML SQ SCH ×4 (05:45→23:45)
[2018-01-21] MEDS: LEVOTHYROXINE 25 MCG TABLET PO SCH (06:21)
[2018-01-21] MEDS: POTASSIUM CHLORIDE 20MEQ/100ML 100 ML IV PRN ×2 (06:56→10:35)
[2018-01-21] MEDS: FLUOXETINE HCL 20 MG CAPSULE PO SCH (09:00)
[2018-01-21] MEDS: METOPROLOL TARTRATE 25 MG TAB PO SCH ×2 (09:00→20:43)
[2018-01-21] MEDS: GABAPENTIN 100 MG CAPSULE PO SCH ×2 (09:00→20:43)
[2018-01-21] MEDS: NYSTATIN 100000 UNIT/ML 5ML UDCUP PO SCH ×3 (09:00→20:43)
[2018-01-21] MEDS: FOLIC ACID 1 MG TABLET PO SCH (09:00)
[2018-01-21] MEDS: LOSARTAN 50 MG TABLET PO SCH (09:00)
[2018-01-21] MEDS: PANTOPRAZOLE 40 MG/VIAL IVP SCH (10:08)
[2018-01-21] MEDS: FLUCONAZOLE 200 MG/NS 100 ML 100 ML IV SCH (10:08)
[2018-01-21] MEDS: LIDOCAINE HCL-MPF 1% 2ML VIAL IVP PRN (10:35)
[2018-01-21 11:53] VITALS: BP 125/65
[2018-01-21] MEDS ORDERED: PROCALAMINE IV SOLUTION 1,000 ML IV SCH (16:15)
[2018-01-21 17:04] VITALS: BP 134/64
[2018-01-21 20:00] VITALS: BP 142/64
[2018-01-21] MEDS: ATORVASTATIN CALCIUM 10 MG TABLET PO SCH (20:42)
[2018-01-21 23:38] VITALS: BP 125/54
[2018-01-22 03:54] VITALS: BP 131/51
[2018-01-22 04:53] LABS: HEMATOCRIT 24.8 % (36-48); MEAN CORPUSCULAR HEMOGLOBIN 27.4 pg (27.0-33.0); MEAN CORPUSCULAR HGB CONC 34.6 g/dL (32.0-36.0); MEAN CORPUSCULAR VOLUME 79.1 fL (79-99); PLATELET COUNT (AUTO) 187 K/uL (130-400); RED BLOOD CELL COUNT(AUTO) 3.13 MIL/uL (4.00-5.50); RED CELL DISTRIBUTION WIDTH 15.9 % (11.0-15.5)
[2018-01-22 05:01] LABS: CREATININE 0.9 mg/dL (0.5-1.5); POTASSIUM 4.2 mmol/L (3.5-5.1)
[2018-01-22] MEDS: INSULIN HUMULIN R 100 UNIT/ML 3ML SQ SCH ×3 (05:45→17:45)
[2018-01-22] MEDS: LEVOTHYROXINE 25 MCG TABLET PO SCH (06:30)
[2018-01-22 07:00] VITALS: BP 113/53
[2018-01-22] MEDS: FLUOXETINE HCL 20 MG CAPSULE PO SCH (09:00)
[2018-01-22] MEDS: LOSARTAN 50 MG TABLET PO SCH (09:00)
[2018-01-22] MEDS: GABAPENTIN 100 MG CAPSULE PO SCH ×2 (09:00→21:00)
[2018-01-22] MEDS: NYSTATIN 100000 UNIT/ML 5ML UDCUP PO SCH ×4 (09:00→22:31)
[2018-01-22] MEDS: FOLIC ACID 1 MG TABLET PO SCH (09:00)
[2018-01-22] MEDS: METOPROLOL TARTRATE 25 MG TAB PO SCH ×2 (09:00→21:00)
[2018-01-22 11:49] VITALS: BP 126/56
[2018-01-22] MEDS: MORPHINE SULFATE 2 MG/ML 1ML SYG IV PRN (13:38)
[2018-01-22] MEDS: FAT EMULSIONS 20% 250ML 250 ML IV SCH (14:40)
[2018-01-22 16:00] VITALS: BP 130/61
[2018-01-22 19:14] VITALS: BP 114/55
[2018-01-22] MEDS: ATORVASTATIN CALCIUM 10 MG TABLET PO SCH (21:00)
[2018-01-22 23:14] VITALS: BP 124/55
[2018-01-23] MEDS: LEVOTHYROXINE 25 MCG TABLET PO SCH (00:56)
[2018-01-23 03:14] VITALS: BP 106/48
[2018-01-23 07:00] VITALS: BP 121/53
[2018-01-23] MEDS: GABAPENTIN 100 MG CAPSULE PO SCH ×2 (09:00→21:00)
[2018-01-23] MEDS: LOSARTAN 50 MG TABLET PO SCH (09:00)
[2018-01-23] MEDS: METOPROLOL TARTRATE 25 MG TAB PO SCH ×2 (09:00→21:00)
[2018-01-23] MEDS: FOLIC ACID 1 MG TABLET PO SCH (09:00)
[2018-01-23] MEDS: FLUOXETINE HCL 20 MG CAPSULE PO SCH (09:00)
[2018-01-23] MEDS: FLUCONAZOLE 200 MG/NS 100 ML 100 ML IV SCH (10:22)
[2018-01-23] MEDS: PANTOPRAZOLE 40 MG/VIAL IVP SCH (10:23)
[2018-01-23 11:00] VITALS: BP 122/57
[2018-01-23] MEDS: INSULIN HUMULIN R 100 UNIT/ML 3ML SQ SCH ×3 (11:45→23:45)
[2018-01-23] MEDS: NYSTATIN 100000 UNIT/ML 5ML UDCUP PO SCH ×4 (13:00→21:00)
[2018-01-23] MEDS: FAT EMULSIONS 20% 250ML 250 ML IV SCH (14:36)
[2018-01-23] MEDS: PROCALAMINE IV SOLUTION 1,000 ML IV SCH (14:36)
[2018-01-23 15:00] VITALS: BP 117/57
[2018-01-23 20:00] VITALS: BP 131/58
[2018-01-23] MEDS: ATORVASTATIN CALCIUM 10 MG TABLET PO SCH (21:00)
[2018-01-23 23:43] VITALS: BP 130/54
[2018-01-24 03:40] VITALS: BP 134/63
[2018-01-24] MEDS: INSULIN HUMULIN R 100 UNIT/ML 3ML SQ SCH ×3 (05:45→16:57)
[2018-01-24 07:00] VITALS: BP 126/59
[2018-01-24] MEDS: LEVOTHYROXINE 25 MCG TABLET PO SCH ×2 (07:30→22:03)
[2018-01-24] MEDS: PROCALAMINE IV SOLUTION 1,000 ML IV SCH (08:05)
[2018-01-24] MEDS: FOLIC ACID 1 MG TABLET PO SCH (09:00)
[2018-01-24] MEDS: LOSARTAN 50 MG TABLET PO SCH (09:00)
[2018-01-24] MEDS: GABAPENTIN 100 MG CAPSULE PO SCH ×2 (09:00→21:00)
[2018-01-24] MEDS: NYSTATIN 100000 UNIT/ML 5ML UDCUP PO SCH ×4 (09:00→22:02)
[2018-01-24] MEDS: METOPROLOL TARTRATE 25 MG TAB PO SCH ×2 (09:00→21:00)
[2018-01-24] MEDS: FLUOXETINE HCL 20 MG CAPSULE PO SCH (09:00)
[2018-01-24] MEDS: PANTOPRAZOLE 40 MG/VIAL IVP SCH (10:51)
[2018-01-24] MEDS: FLUCONAZOLE 200 MG/NS 100 ML 100 ML IV SCH (10:51)
[2018-01-24 11:00] VITALS: BP 126/43
[2018-01-24 16:00] VITALS: BP 137/103
[2018-01-24] MEDS: FAT EMULSIONS 20% 250ML 250 ML IV SCH (17:04)
[2018-01-24] MEDS: ATORVASTATIN CALCIUM 10 MG TABLET PO SCH (21:00)
[2018-01-24 22:19] VITALS: BP 144/64
[2018-01-25] VITALS (21 sets, daily range): BP systolic 93–143; BP diastolic 49–66
[2018-01-25 05:29] LABS: HEMATOCRIT 26.6 % (36-48); MEAN CORPUSCULAR HEMOGLOBIN 26.4 pg (27.0-33.0); MEAN CORPUSCULAR HGB CONC 33.6 g/dL (32.0-36.0); MEAN CORPUSCULAR VOLUME 78.7 fL (79-99); PLATELET COUNT (AUTO) 164 K/uL (130-400); RED BLOOD CELL COUNT(AUTO) 3.38 MIL/uL (4.00-5.50); RED CELL DISTRIBUTION WIDTH 16.2 % (11.0-15.5); WHITE BLOOD COUNT (AUTO) 4.8 K/uL (4.8-10.8)
[2018-01-25 05:58] LABS: CREATININE 0.9 mg/dL (0.5-1.5); POTASSIUM 4.2 mmol/L (3.5-5.1)
[2018-01-25] MEDS: METOPROLOL TARTRATE 25 MG TAB PO SCH ×2 (09:00→21:00)
[2018-01-25] MEDS: FLUOXETINE HCL 20 MG CAPSULE PO SCH (09:00)
[2018-01-25] MEDS: FOLIC ACID 1 MG TABLET PO SCH (09:00)
[2018-01-25] MEDS: GABAPENTIN 100 MG CAPSULE PO SCH ×2 (09:00→21:00)
[2018-01-25] MEDS: NYSTATIN 100000 UNIT/ML 5ML UDCUP PO SCH ×4 (09:00→21:00)
[2018-01-25] MEDS: LOSARTAN 50 MG TABLET PO SCH (09:00)
[2018-01-25] MEDS: INSULIN HUMULIN R 100 UNIT/ML 3ML SQ SCH ×3 (11:45→23:45)
[2018-01-25] MEDS: FAT EMULSIONS 20% 250ML 250 ML IV SCH (14:21)
[2018-01-25] MEDS: FLUCONAZOLE 200 MG/NS 100 ML 100 ML IV SCH (14:21)
[2018-01-25] MEDS: ATORVASTATIN CALCIUM 10 MG TABLET PO SCH (21:00)
[2018-01-25] MEDS: LEVOTHYROXINE 25 MCG TABLET PO SCH (22:02)
[2018-01-25] MEDS: PANTOPRAZOLE 40 MG/VIAL IVP SCH (22:06)
[2018-01-25] MEDS: PROCALAMINE IV SOLUTION 1,000 ML IV SCH (22:07)
[2018-01-26 00:13] VITALS: BP 125/54
[2018-01-26 04:23] VITALS: BP 139/59
[2018-01-26] MEDS: INSULIN HUMULIN R 100 UNIT/ML 3ML SQ SCH ×4 (05:45→17:45)
[2018-01-26 07:00] VITALS: BP 129/56
[2018-01-26] MEDS: LOSARTAN 50 MG TABLET PO SCH (09:00)
[2018-01-26] MEDS: METOPROLOL TARTRATE 25 MG TAB PO SCH ×2 (09:00→21:00)
[2018-01-26] MEDS: FLUOXETINE HCL 20 MG CAPSULE PO SCH (09:00)
[2018-01-26] MEDS: GABAPENTIN 100 MG CAPSULE PO SCH ×2 (09:00→21:00)
[2018-01-26] MEDS: FOLIC ACID 1 MG TABLET PO SCH (09:00)
[2018-01-26] MEDS: PANTOPRAZOLE 40 MG/VIAL IVP SCH ×2 (10:04→21:56)
[2018-01-26] MEDS: FLUCONAZOLE 200 MG/NS 100 ML 100 ML IV SCH (10:04)
[2018-01-26] MEDS: NYSTATIN 100000 UNIT/ML 5ML UDCUP PO SCH ×4 (10:05→21:56)
[2018-01-26 11:00] VITALS: BP 143/64
[2018-01-26] MEDS: FAT EMULSIONS 20% 250ML 250 ML IV SCH (11:40)
[2018-01-26 16:00] VITALS: BP 156/62
[2018-01-26 20:09] VITALS: BP 145/58
[2018-01-26] MEDS: ATORVASTATIN CALCIUM 10 MG TABLET PO SCH (21:00)
[2018-01-27] VITALS (22 sets, daily range): BP systolic 114–146; BP diastolic 50–66
[2018-01-27] MEDS: LEVOTHYROXINE 25 MCG TABLET PO SCH (05:31)
[2018-01-27] MEDS: INSULIN HUMULIN R 100 UNIT/ML 3ML SQ SCH ×4 (05:45→23:45)
[2018-01-27] MEDS: PROCALAMINE IV SOLUTION 1,000 ML IV SCH (06:19)
[2018-01-27] MEDS ORDERED: SODIUM CHLORIDE 0.9% 1000ML 1,000 ML IV ONE (08:02)
[2018-01-27] MEDS: FLUCONAZOLE 200 MG/NS 100 ML 100 ML IV SCH (08:15)
[2018-01-27] MEDS ORDERED: PROPOFOL 10 MG/ML 20ML VIAL IV ONE (08:59)
[2018-01-27] MEDS: METOPROLOL TARTRATE 25 MG TAB PO SCH ×2 (09:00→21:00)
[2018-01-27] MEDS: FOLIC ACID 1 MG TABLET PO SCH (09:00)
[2018-01-27] MEDS: PANTOPRAZOLE 40 MG/VIAL IVP SCH ×2 (09:00→21:31)
[2018-01-27] MEDS: FLUOXETINE HCL 20 MG CAPSULE PO SCH (09:00)
[2018-01-27] MEDS: NYSTATIN 100000 UNIT/ML 5ML UDCUP PO SCH ×4 (09:00→21:31)
[2018-01-27] MEDS: GABAPENTIN 100 MG CAPSULE PO SCH ×2 (09:00→21:00)
[2018-01-27] MEDS: LOSARTAN 50 MG TABLET PO SCH (09:00)
[2018-01-27] MEDS ORDERED: FENTANYL CITRATE PF 50 MCG/1 ML 2ML VIAL ONE (09:00)
[2018-01-27] MEDS ORDERED: SODIUM CHLORIDE 0.9% 10 ML VIAL ONE (09:15)
[2018-01-27] MEDS ORDERED: LIDOCAINE PF 2% 5ML ABBOJECT ONE (09:15)
[2018-01-27] MEDS ORDERED: ESMOLOL HCL 10 MG/ML 10 ML VIAL ONE (09:15)
[2018-01-27] MEDS ORDERED: SUCCINYLCHOLINE CHLORIDE 20 MG/ML 10 ML VIAL ONE (09:15)
[2018-01-27] MEDS ORDERED: PHENYLEPHRINE HCL 10 MG/ML 1ML VIAL IV ONE (09:15)
[2018-01-27] MEDS ORDERED: ONDANSETRON HCL 4 MG/2 ML VIAL IVP PRN (10:00)
[2018-01-27] MEDS ORDERED: ONDANSETRON HCL MDV 20ML 2 MG/ML VIAL ONE (11:19)
[2018-01-27] MEDS: FAT EMULSIONS 20% 250ML 250 ML IV SCH (13:37)
[2018-01-27] MEDS: MORPHINE SULFATE 2 MG/ML 1ML SYG IV PRN (14:22)
[2018-01-27] MEDS: ATORVASTATIN CALCIUM 10 MG TABLET PO SCH (21:00)
[2018-01-28] MEDS: MORPHINE SULFATE 2 MG/ML 1ML SYG IV PRN (00:19)
[2018-01-28 00:51] VITALS: BP 134/66
[2018-01-28 04:22] VITALS: BP 136/60
[2018-01-28 04:29] LABS: HEMATOCRIT 24.9 % (36-48); MEAN CORPUSCULAR HEMOGLOBIN 27.6 pg (27.0-33.0); MEAN CORPUSCULAR HGB CONC 35.2 g/dL (32.0-36.0); MEAN CORPUSCULAR VOLUME 78.5 fL (79-99); NUCLEATED RED BLOOD CELLS 0.1 % (0.0-0.19); PLATELET COUNT (AUTO) 167 K/uL (130-400); RED BLOOD CELL COUNT(AUTO) 3.18 MIL/uL (4.00-5.50); RED CELL DISTRIBUTION WIDTH 15.7 % (11.0-15.5); WHITE BLOOD COUNT (AUTO) 6.4 K/uL (4.8-10.8)
[2018-01-28 04:47] LABS: ALBUMIN 2.3 g/dL (3.5-5.0); BILIRUBIN,TOTAL 0.5 mg/dL (0.2-1.0); CREATININE 0.9 mg/dL (0.5-1.5); MAGNESIUM 1.5 mg/dL (1.80-2.40); PHOSPHORUS 3.1 mg/dL (2.5-4.9); POTASSIUM 4.3 mmol/L (3.5-5.1)
[2018-01-28 04:55] LABS: BASOPHILS % (MANUAL) 1 % (0-2); LYMPHOCYTES % (MANUAL) 19 % (22-44); MAN.DIFF COMMENT-IMPRESSION MANUAL DIFFERENTIAL; MONOCYTES % (MANUAL) 9 % (2-9); SEGMENTED NEUTROPHILS % 71 % (40-70)
[2018-01-28 04:56] LABS: PLATELET MORPHOLOGY COMMENT ADEQUATE
[2018-01-28] MEDS: INSULIN HUMULIN R 100 UNIT/ML 3ML SQ SCH ×4 (05:45→23:45)
[2018-01-28] MEDS: LEVOTHYROXINE 25 MCG TABLET PO SCH (05:59)
[2018-01-28 07:54] VITALS: BP 126/52
[2018-01-28] MEDS: GABAPENTIN 100 MG CAPSULE PO SCH ×2 (09:00→23:15)
[2018-01-28] MEDS: PANTOPRAZOLE 40 MG/VIAL IVP SCH ×2 (09:00→23:12)
[2018-01-28] MEDS: FLUOXETINE HCL 20 MG CAPSULE PO SCH (09:00)
[2018-01-28] MEDS: METOPROLOL TARTRATE 25 MG TAB PO SCH ×2 (09:00→23:14)
[2018-01-28] MEDS: FOLIC ACID 1 MG TABLET PO SCH (09:00)
[2018-01-28] MEDS: LOSARTAN 50 MG TABLET PO SCH (09:00)
[2018-01-28] MEDS: FAT EMULSIONS 20% 250ML 250 ML IV SCH (09:11)
[2018-01-28] MEDS: FLUCONAZOLE 200 MG/NS 100 ML 100 ML IV SCH (09:11)
[2018-01-28] MEDS: NYSTATIN 100000 UNIT/ML 5ML UDCUP PO SCH ×4 (09:22→23:14)
[2018-01-28] MEDS ORDERED: MAGNESIUM 2GM PREMIX 50ML 50 ML IV SCH (10:45)
[2018-01-28 13:10] VITALS: BP 149/62
[2018-01-28 17:16] VITALS: BP 120/58
[2018-01-28 20:00] VITALS: BP 120/50
[2018-01-28] MEDS: ATORVASTATIN CALCIUM 10 MG TABLET PO SCH (23:14)
[2018-01-29] VITALS: BP 118/50
[2018-01-29 04:00] VITALS: BP 108/64
[2018-01-29] MEDS: INSULIN HUMULIN R 100 UNIT/ML 3ML SQ SCH ×3 (05:45→17:28)
[2018-01-29] MEDS: LEVOTHYROXINE 25 MCG TABLET PO SCH ×2 (06:56→08:05)
[2018-01-29 08:00] VITALS: BP 111/57
[2018-01-29] MEDS: NYSTATIN 100000 UNIT/ML 5ML UDCUP PO SCH ×3 (08:04→17:00)
[2018-01-29] MEDS: PANTOPRAZOLE 40 MG/VIAL IVP SCH (08:04)
[2018-01-29] MEDS: FOLIC ACID 1 MG TABLET PO SCH (08:04)
[2018-01-29] MEDS: FLUOXETINE HCL 20 MG CAPSULE PO SCH (08:05)
[2018-01-29] MEDS: METOPROLOL TARTRATE 25 MG TAB PO SCH (08:05)
[2018-01-29] MEDS: GABAPENTIN 100 MG CAPSULE PO SCH (08:05)
[2018-01-29] MEDS: LOSARTAN 50 MG TABLET PO SCH (08:05)
[2018-01-29] MEDS: MORPHINE SULFATE 2 MG/ML 1ML SYG IV PRN (08:06)
[2018-01-29] MEDS ORDERED: LANS30CA53 PO (10:46)
[2018-01-29 11:37] VITALS: BP 120/61
[2018-01-29 15:41] VITALS: BP 113/54
[2018-03-28] MEDS ORDERED: FERR15DR21 PO (12:17)
== END 2018-01-29 18:39 | disposition home or self-care (01) | DRG 327 ==
LOC: EDH 18:01 → OBSVTOIN 22:13 → EDHIP 22:13 → 3DH 23:26
PROVIDERS: ADMIT Family Medicine; ATTEND Family Medicine
PROC: 0DB28ZX Excision of Middle Esophagus, Via Natural or Artificial Opening Endoscopic, Diagnostic (ICD-10-PCS; 2018-01-18)
PROC: 05H533Z Insertion of Infusion Device into Right Subclavian Vein, Percutaneous Approach (ICD-10-PCS; 2018-01-20)
PROC: 0DH60UZ Insertion of Feeding Device into Stomach, Open Approach (ICD-10-PCS; principal; 2018-01-27 09:00)
DX: K22.2 Esophageal obstruction (principal); E44.0 Moderate protein-calorie malnutrition; D64.9 Anemia, unspecified; E66.9 Obesity, unspecified; Z68.32 Body mass index [BMI] 32.0-32.9, adult; B37.9 Candidiasis, unspecified; K22.10 Ulcer of esophagus without bleeding; D62 Acute posthemorrhagic anemia; E03.9 Hypothyroidism, unspecified; E11.9 Type 2 diabetes mellitus without complications; E78.5 Hyperlipidemia, unspecified; I10 Essential (primary) hypertension; K21.0 Gastro-esophageal reflux disease with esophagitis; I25.10 Atherosclerotic heart disease of native coronary artery without angina pectoris; K22.4 Dyskinesia of esophagus; M81.0 Age-related osteoporosis without current pathological fracture; R13.10 Dysphagia, unspecified; T50.905A Adverse effect of unspecified drugs, medicaments and biological substances, initial encounter; Z82.49 Family history of ischemic heart disease and other diseases of the circulatory system; Z83.3 Family history of diabetes mellitus
CPT/HCPCS: 36415; 71045; 71046; 80048; 80053; 82948; 83735; 84100; 84132; 85025; 85027; 85610; 85730; 88305; 88341; 88342; 97039; A4346; C1725; C1894; C9113; J0330; J0360; J1450; J2001; J2370; J2704; J3010; J3475; J3480; J3490; J7030; J7042; J7070; J7120

== ENCOUNTER 2018-02-26 16:26 | Observation (INO) | payer MEDICARE, OTHER ==
[~2018-02-26] VITALS: Ht 154.9 cm; Wt 70.4 kg
[~2018-02-26 16:26] MED LIST changes: +ACET-2247 PO; +ALBU2.5V2 IH; -CETI10CA5 PO; -DOXY100V2 IV; +GUAIFDM PO; +LACT10SO9 PO; +LANS30CA53 PO; +LORA10CA9 PO; +ONDA4TAB4 PO; +ZINC56.7 TP
[2018-02-26 17:24] LABS: BASOPHILS % (AUTO) 0.6 % (0.0-5.0); EOSINOPHILS % (AUTO) 0.5 % (0.0-8.0); HEMATOCRIT 24.5 % (36-48); LYMPHOCYTES % (AUTO) 16.1 % (21.0-51.0); MEAN CORPUSCULAR HEMOGLOBIN 25.1 pg (27.0-33.0); MEAN CORPUSCULAR HGB CONC 31.1 g/dL (32.0-36.0); MEAN CORPUSCULAR VOLUME 80.8 fL (79-99); MONOCYTES % (AUTO) 5.4 % (3.0-13.0); NEUTROPHILS % (AUTO) 77.4 % (40.0-77.0); PLATELET COUNT (AUTO) 344 K/uL (130-400); RED BLOOD CELL COUNT(AUTO) 3.03 MIL/uL (4.00-5.50); RED CELL DISTRIBUTION WIDTH 17.4 % (11.0-15.5); WHITE BLOOD COUNT (AUTO) 11.5 K/uL (4.8-10.8)
[2018-02-26 17:26] LABS: INR 1.02 (0.85-1.15); PROTHROMBIN TIME 10.7 SEC (9.6-11.6)
[2018-02-26 17:27] LABS: CARBON DIOXIDE 20 mmol/L (21-32); CHLORIDE 115 mmol/L (101-111); CREATININE 2.3 mg/dL (0.5-1.5); GLOMERULAR FILTR. RATE CALC 21 mL/min (>60); GLUCOSE,RANDOM 122 mg/dL (70-105); POTASSIUM 4.4 mmol/L (3.5-5.1); SODIUM SERUM 153 mmol/L (136-145); UREA NITROGEN, BLOOD 45 mg/dL (7-18)
[2018-02-26 17:42] LABS: ALANINE AMINOTRANSFERASE 13 U/L (12-78); ALBUMIN 2.8 g/dL (3.5-5.0); ASPARTATE AMINOTRANSFERASE 19 U/L (10-37); BILIRUBIN,TOTAL 0.2 mg/dL (0.2-1.0); CREATINE KINASE MB < 0.5 ng/mL (0.5-3.6); CREATINE KINASE, TOTAL 17 U/L (21-232); TOTAL PROTEIN, SERUM 6.7 g/dL (6.0-8.3)
[2018-02-26 18:06] LABS: AMYLASE 32 U/L (25-115); LIPASE 72 U/L (114-286)
[2018-02-26 18:13] LABS: OCCULT BLOOD STOOL SINGLE ONLY NEGATIVE (NEGATIVE)
[2018-02-26] MEDS ORDERED: SODIUM CHLORIDE 0.9% 1000ML 1,000 ML IV ONE (19:41)
[2018-02-26] MEDS ORDERED: METRONIDAZOLE 500MG/100ML BAG 100 ML ONE (20:04)
[2018-02-26] MEDS ORDERED: METRONIDAZOLE 500MG/100ML BAG 100 ML IVPB SCH (20:45)
[2018-02-26] MEDS ORDERED: SODIUM CHLORIDE 0.9% 1000ML 1,000 ML IV SCH (21:00)
[2018-02-26 22:30] VITALS: BP 101/41
[2018-02-26] MEDS ORDERED: INSULIN HUMULIN R 100 UNIT/ML 3ML SQ SCH (23:15)
[2018-02-26] MEDS ORDERED: ONDANSETRON HCL MDV 20ML 2 MG/ML VIAL IV PRN (23:15)
[2018-02-26] MEDS ORDERED: DEXTROSE 5 %-0.45 % NACL 1,000 ML IV SCH (23:15)
[2018-02-26] MEDS: METRONIDAZOLE 500MG/100ML BAG 100 ML IV SCH (23:15)
[2018-02-27] MEDS ORDERED: DEXTROSE 5 %-0.45 % NACL 1,000 ML IV ONE (01:08)
[2018-02-27 03:20] VITALS: BP 104/40
[2018-02-27 04:45] LABS: HEMATOCRIT 22.4 % (36-48); MEAN CORPUSCULAR HEMOGLOBIN 25.7 pg (27.0-33.0); MEAN CORPUSCULAR VOLUME 80.2 fL (79-99); PLATELET COUNT (AUTO) 283 K/uL (130-400); RED BLOOD CELL COUNT(AUTO) 2.79 MIL/uL (4.00-5.50); RED CELL DISTRIBUTION WIDTH 17.5 % (11.0-15.5); WHITE BLOOD COUNT (AUTO) 8.2 K/uL (4.8-10.8)
[2018-02-27 04:51] LABS: CREATININE 1.7 mg/dL (0.5-1.5); POTASSIUM 4.2 mmol/L (3.5-5.1)
[2018-02-27] MEDS: INSULIN HUMULIN R 100 UNIT/ML 3ML SQ SCH ×3 (06:00→18:00)
[2018-02-27] MEDS: METRONIDAZOLE 500MG/100ML BAG 100 ML IV SCH ×3 (06:42→23:42)
[2018-02-27 08:23] VITALS: BP 108/61
[2018-02-27] MEDS: FAMOTIDINE/PF 20 MG/2 ML VIAL IV SCH ×3 (09:00→23:42)
[2018-02-27 11:45] VITALS: BP 138/58
[2018-02-27 16:03] VITALS: BP 121/67
[2018-02-27] MEDS ORDERED: LACTULOSE 20 GM/30 ML UDCUP PO PRN (17:15)
[2018-02-27] MEDS ORDERED: ACETAMINOPHEN 325 MG TAB PO PRN (17:15)
[2018-02-27] MEDS ORDERED: SODIUM CHLORIDE 0.9% 250 ML IV ONE (18:17)
[2018-02-27 19:25] VITALS: BP 132/48
[2018-02-27] MEDS ORDERED: ATORVASTATIN CALCIUM 10 MG TABLET PO SCH (21:00)
[2018-02-27 21:11] LABS: HEMATOCRIT 22.3 % (36-48)
[2018-02-27 21:16] LABS: CREATININE 1.3 mg/dL (0.5-1.5); POTASSIUM 4.2 mmol/L (3.5-5.1)
[2018-02-27] MEDS: GABAPENTIN 100 MG CAPSULE PO SCH (23:39)
[2018-02-27] MEDS: METOPROLOL TARTRATE 25 MG TAB PO SCH (23:48)
[2018-02-28 00:15] VITALS: BP 129/67
[2018-02-28 04:06] VITALS: BP 133/57
[2018-02-28] MEDS: INSULIN HUMULIN R 100 UNIT/ML 3ML SQ SCH ×3 (06:00→12:00)
[2018-02-28] MEDS: METRONIDAZOLE 500MG/100ML BAG 100 ML IV SCH (06:57)
[2018-02-28] MEDS: FAMOTIDINE/PF 20 MG/2 ML VIAL IV SCH ×2 (07:28→12:59)
[2018-02-28] MEDS ORDERED: LEVOTHYROXINE 25 MCG TABLET PO SCH (07:30)
[2018-02-28 08:24] VITALS: BP 138/73
[2018-02-28] MEDS ORDERED: FERROUS SULFATE 325 MG TABLET.DR PO SCH (09:00)
[2018-02-28] MEDS ORDERED: LANSOPRAZOLE 30 MG PO SCH (09:00)
[2018-02-28] MEDS ORDERED: LORATADINE 10 MG TABLET PO SCH (09:00)
[2018-02-28] MEDS ORDERED: FLUOXETINE HCL 20 MG CAPSULE PO SCH (09:00)
[2018-02-28] MEDS ORDERED: FOLIC ACID 1 MG TABLET PO SCH (09:00)
[2018-02-28] MEDS ORDERED: METFORMIN HCL 500 MG TAB.SR.24H PO SCH (09:00)
[2018-02-28] MEDS: METOPROLOL TARTRATE 25 MG TAB PO SCH (09:00)
[2018-02-28] MEDS ORDERED: PANTOPRAZOLE SODIUM 40 MG TABLET.DR PO SCH (09:00)
[2018-02-28] MEDS ORDERED: ASPIRIN 81 MG EC TAB PO SCH (09:00)
[2018-02-28] MEDS ORDERED: LOSARTAN 50 MG TABLET PO SCH (09:00)
[2018-02-28 11:54] VITALS: BP 140/56
[2018-02-28] MEDS: GABAPENTIN 100 MG CAPSULE PO SCH (12:59)
== END 2018-02-28 17:45 | disposition home or self-care (01) ==
LOC: EDH 16:26 → EDHIP 19:47 → 3CH 22:31
PROVIDERS: ADMIT Family Medicine; ATTEND Family Medicine
DX: R13.10 Dysphagia, unspecified (principal); E86.0 Dehydration; E11.9 Type 2 diabetes mellitus without complications; E03.9 Hypothyroidism, unspecified; I10 Essential (primary) hypertension; E78.5 Hyperlipidemia, unspecified; I95.9 Hypotension, unspecified; I25.10 Atherosclerotic heart disease of native coronary artery without angina pectoris; E87.0 Hyperosmolality and hypernatremia; N28.9 Disorder of kidney and ureter, unspecified; Z93.1 Gastrostomy status
CPT/HCPCS: 36415 ×3; 36430; 71045; 80048 ×2; 80053; 82150; 82270; 82550; 82553; 82948 ×7; 83605 ×2; 83690; 84484; 85014 ×2; 85018 ×2; 85025; 85027; 85610; 85730; 86850; 86900; 86901; 86922; 87046; 87205; 87324; 92610; 93005; 96361; 96365; 96366 ×2; 96375; 96376 ×2; 97039 ×3; 97161; 99285; G0378 ×46; G8978; G8979; G8980; G8981; G8982; G8983; J3490 ×8; J7030 ×2; J7042; P9016

== ENCOUNTER 2018-03-19 12:22 | Emergency (ER) | payer OTHER ==
[2018-03-19] MEDS ORDERED: SODIUM CHLORIDE 0.9% 1000ML 1,000 ML IV ONE (12:49)
[2018-03-19 13:10] LABS: CREATININE 1.2 mg/dL (0.5-1.5); POTASSIUM 4.7 mmol/L (3.5-5.1)
[2018-03-19 13:15] LABS: ALBUMIN 2.5 g/dL (3.5-5.0); BILIRUBIN,TOTAL 0.2 mg/dL (0.2-1.0); TOTAL PROTEIN, SERUM 6.2 g/dL (6.0-8.3)
[2018-03-19 13:25] LABS: BASOPHILS % (AUTO) 0.9 % (0.0-5.0); EOSINOPHILS % (AUTO) 1.9 % (0.0-8.0); HEMATOCRIT 28.5 % (36-48); LYMPHOCYTES % (AUTO) 20.3 % (21.0-51.0); MEAN CORPUSCULAR HEMOGLOBIN 27.6 pg (27.0-33.0); MEAN CORPUSCULAR HGB CONC 33.7 g/dL (32.0-36.0); MONOCYTES % (AUTO) 4.8 % (3.0-13.0); NEUTROPHILS % (AUTO) 72.1 % (40.0-77.0); PLATELET COUNT (AUTO) 252 K/uL (130-400); RED BLOOD CELL COUNT(AUTO) 3.47 MIL/uL (4.00-5.50); RED CELL DISTRIBUTION WIDTH 19.7 % (11.0-15.5); WHITE BLOOD COUNT (AUTO) 10.7 K/uL (4.8-10.8)
[2018-03-19 14:36] LABS: APPEARANCE,URINE CLOUDY (CLEAR); BILIRUBIN,URINE NEGATIVE (NEGATIVE); COLOR,URINE YELLOW (YELLOW); GLUCOSE, URINE (UA) NEGATIVE (NEGATIVE); KETONES,URINE NEGATIVE (NEGATIVE); LEUKOCYTE ESTERASE ,URINE LARGE (NEGATIVE); NITRATE,URINE POSITIVE (NEGATIVE); OCCULT BLOOD,URINE SMALL (NEGATIVE); PH,URINE 5.5 (5.0-8.0); PROTEIN,URINE NEGATIVE (NEGATIVE); UROBILINOGEN,URINE 0.2 mg/dL (0.2-1.0)
[2018-03-19 14:43] LABS: WBC,URINE 26-50 /HPF (0-1)
[2018-03-19 14:45] LABS: BACTERIA,URINE Few /HPF (None Seen); SQUAMOUS EPITHELIAL CELL,UR Few /HPF (0-2)
[2018-03-19] MEDS ORDERED: CEFTRIAXONE SODIUM 1 GM ONE (15:27)
== END 2018-03-19 18:05 | disposition home or self-care (01) ==
LOC: EDH 12:22
DX: E86.0 Dehydration (principal); N30.00 Acute cystitis without hematuria; K52.89 Other specified noninfective gastroenteritis and colitis; D64.9 Anemia, unspecified; I25.10 Atherosclerotic heart disease of native coronary artery without angina pectoris; E78.5 Hyperlipidemia, unspecified; I10 Essential (primary) hypertension; M81.0 Age-related osteoporosis without current pathological fracture; Z98.890 Other specified postprocedural states
CPT/HCPCS: 36415; 74018; 80053; 81001; 82550; 84443; 84484; 85025; 87088; 87186; 93005; 96361; 96374; 99285; J0696; J7030

== ENCOUNTER 2018-03-27 02:24 | Inpatient (IN) | payer OTHER ==
[~2018-03-27] VITALS: Ht 127 cm; Wt 81.7 kg
[2018-03-27] MEDS ORDERED: ACETAMINOPHEN ELIXIR 650 MG/20.3 ML UDCUP ONE (03:03)
[2018-03-27] MEDS ORDERED: IPRATROPIUM/ALBUTEROL SULFATE 3 ML SOLUTION IH ONE ×2 (03:14→06:32)
[2018-03-27 03:31] LABS: BASOPHILS % (AUTO) 0.5 % (0.0-5.0); EOSINOPHILS % (AUTO) 1.1 % (0.0-8.0); LYMPHOCYTES % (AUTO) 10.7 % (21.0-51.0); MEAN CORPUSCULAR HEMOGLOBIN 26.9 pg (27.0-33.0); MEAN CORPUSCULAR HGB CONC 32.3 g/dL (32.0-36.0); MEAN CORPUSCULAR VOLUME 83.3 fL (79-99); MONOCYTES % (AUTO) 3.5 % (3.0-13.0); NEUTROPHILS % (AUTO) 84.2 % (40.0-77.0); PLATELET COUNT (AUTO) 299 K/uL (130-400); RED CELL DISTRIBUTION WIDTH 19.6 % (11.0-15.5); WHITE BLOOD COUNT (AUTO) 14.8 K/uL (4.8-10.8)
[2018-03-27 03:41] LABS: INR 0.95 (0.85-1.15); PARTIAL THROMBOPLASTIN TIME 24.3 SEC (26.3-35.5)
[2018-03-27 03:42] LABS: CREATININE 1.2 mg/dL (0.5-1.5); POTASSIUM 3.8 mmol/L (3.5-5.1)
[2018-03-27 03:55] LABS: ALBUMIN 2.9 g/dL (3.5-5.0); BILIRUBIN,TOTAL 0.3 mg/dL (0.2-1.0); TOTAL PROTEIN, SERUM 7.4 g/dL (6.0-8.3)
[2018-03-27 04:18] LABS: APPEARANCE,URINE Clear (CLEAR); BILIRUBIN,URINE Negative (NEGATIVE); GLUCOSE, URINE (UA) Negative (NEGATIVE); KETONES,URINE Negative (NEGATIVE); LEUKOCYTE ESTERASE ,URINE Negative (NEGATIVE); NITRATE,URINE Negative (NEGATIVE); OCCULT BLOOD,URINE Negative (NEGATIVE); PROTEIN,URINE Negative (NEGATIVE); UROBILINOGEN,URINE 0.2 mg/dL (0.2-1.0)
[2018-03-27 04:20] LABS: COLOR,URINE YELLOW (YELLOW)
[2018-03-27] MEDS ORDERED: LEVOFLOXACIN 750 MG/D5W 150 ML 150 ML ONE (04:39)
[2018-03-27] MEDS ORDERED: SODIUM CHLORIDE 0.9% 1000ML 1,000 ML IV ONE ×2 (04:39→08:31)
[2018-03-27] MEDS ORDERED: TRAMADOL HCL 50 MG TABLET ONE (04:51)
[2018-03-27] MEDS ORDERED: LEVOFLOXACIN 500 MG/D5W 100 ML 100 ML IV SCH (06:00)
[2018-03-27] MEDS ORDERED: POTASSIUM CHLORIDE 10% ELIXIR 20 MEQ/15 ML UDCUP PO PRN ×2 (07:15)
[2018-03-27] MEDS ORDERED: GUAIFENESIN-DM 200/20 MG 10 ML PO PRN (07:15)
[2018-03-27] MEDS ORDERED: ACETAMINOPHEN 325 MG TAB PO PRN ×2 (07:15)
[2018-03-27] MEDS ORDERED: DEXTROSE 50%-WATER 50 ML DISP.SYRIN IV PRN (07:15)
[2018-03-27] MEDS ORDERED: POTASSIUM CHLORIDE 20 MEQ ERTAB PO PRN ×2 (07:15)
[2018-03-27] MEDS ORDERED: POTASSIUM CHLORIDE 20MEQ/100ML 100 ML IV PRN ×2 (07:15)
[2018-03-27] MEDS ORDERED: LIDOCAINE HCL-MPF 1% 2ML VIAL IVP PRN ×2 (07:15)
[2018-03-27] MEDS ORDERED: GLUCAGON 1MG KIT 1 MG ML IM PRN (07:15)
[2018-03-27] MEDS ORDERED: ONDANSETRON HCL 4 MG/2 ML VIAL IV PRN (07:15)
[2018-03-27] MEDS ORDERED: INSULIN HUMULIN R 100 UNIT/ML 3ML SQ SCH (07:30)
[2018-03-27] MEDS ORDERED: KETOROLAC TROMETHAMINE 15MG/ML ONE (10:42)
[2018-03-27] MEDS ORDERED: ACETAMINOPHEN-CODEINE 300/30MG TAB PO PRN (11:00)
[2018-03-27] MEDS ORDERED: KETOROLAC TROMETHAMINE 15MG/ML IV PRN (11:00)
[2018-03-27] MEDS ORDERED: IOPAMIDOL-370 100 ML VIAL IV ONE (14:54)
[2018-03-27] MEDS ORDERED: METOPROLOL TARTRATE 1 MG/ML 5ML VIAL IV ONE (18:44)
[2018-03-27] MEDS: IPRATROPIUM/ALBUTEROL SULFATE 3 ML SOLUTION IH SCH ×2 (18:59→23:36)
[2018-03-27] MEDS: SODIUM CHLORIDE 0.9% 1000ML 1,000 ML IV SCH (20:34)
[2018-03-27 21:15] VITALS: BP 81/57
[2018-03-28] VITALS (7 sets, daily range): BP systolic 95–151; BP diastolic 45–73
[2018-03-28] MEDS: SODIUM CHLORIDE 0.9% 1000ML 1,000 ML IV SCH (02:43)
[2018-03-28 04:54] LABS: HEMATOCRIT 33.6 % (36-48); MEAN CORPUSCULAR HEMOGLOBIN 27.3 pg (27.0-33.0); MEAN CORPUSCULAR HGB CONC 32.8 g/dL (32.0-36.0); MEAN CORPUSCULAR VOLUME 83.2 fL (79-99); PLATELET COUNT (AUTO) 302 K/uL (130-400); RED BLOOD CELL COUNT(AUTO) 4.03 MIL/uL (4.00-5.50); RED CELL DISTRIBUTION WIDTH 20.4 % (11.0-15.5); WHITE BLOOD COUNT (AUTO) 21.3 K/uL (4.8-10.8)
[2018-03-28 05:02] LABS: CREATININE 1.6 mg/dL (0.5-1.5); POTASSIUM 4.3 mmol/L (3.5-5.1)
[2018-03-28] MEDS: IPRATROPIUM/ALBUTEROL SULFATE 3 ML SOLUTION IH SCH ×3 (06:00→18:00)
[2018-03-28] MEDS: IPRATROPIUM 0.5 MG/2.5 ML INH IH SCH ×5 (06:41→23:54)
[2018-03-28] MEDS: LEVOFLOXACIN 500 MG/D5W 100 ML 100 ML IV SCH ×2 (07:00→07:15)
[2018-03-28] MEDS: INSULIN HUMULIN R 100 UNIT/ML 3ML SQ SCH ×3 (07:19→18:47)
[2018-03-28] MEDS ORDERED: SODIUM CHLORIDE 0.9% 1000ML 1,000 ML IV SCH (07:30)
[2018-03-28] MEDS ORDERED: METOPROLOL TARTRATE 25 MG TAB PO SCH ×2 (09:00→21:00)
[2018-03-28] MEDS ORDERED: ENOXAPARIN SODIUM 30 MG/0.3 ML SQ SCH (09:00)
[2018-03-28] MEDS ORDERED: METOPROLOL TARTRATE 1 MG/ML 5ML VIAL IV SCH (09:15)
[2018-03-28] MEDS: METHYLPREDNISOLONE SOD SUCC 40MG/ML 1ML IVP SCH ×2 (09:40→17:44)
[2018-03-28] MEDS: ZOSYN 3.375GM+NS 50ML 50 ML IV SCH ×2 (09:41→20:30)
[2018-03-28] MEDS: METOPROLOL TARTRATE 25 MG TAB PO SCH ×2 (11:56→20:39)
[2018-03-28] MEDS ORDERED: CHOL4PAC4 PO (12:17)
[2018-03-28] MEDS ORDERED: FOLI1TAB15 PO (12:17)
[2018-03-28] MEDS ORDERED: ASPI-555 PO (12:17)
[2018-03-28] MEDS ORDERED: LEVO25TA54 PO (12:17)
[2018-03-28] MEDS ORDERED: RANI15SY2 PO (12:17)
[2018-03-28] MEDS ORDERED: [UNRECOGNIZED DRUG - CODE] PO (12:17)
[2018-03-28] MEDS ORDERED: SIMV40TA59 PO (12:17)
[2018-03-28] MEDS ORDERED: LOSA50TA37 PO (12:17)
[2018-03-28] MEDS ORDERED: FLUO20CA30 PO (12:17)
[2018-03-28] MEDS ORDERED: ALEN70TA47 PO (12:17)
[2018-03-28 15:36] LABS: GLUCOSE,BODY FLUID 182 mg/dL (1-40)
[2018-03-28 15:42] LABS: APPEARANCE BODY FLUID SLIGHTLY CLOUDY (CLEAR); SPECIMENTYPE,BODY FLUID PLEURAL
[2018-03-28 15:43] LABS: COLOR,BODY FLUID BROWN (LT YELLOW); TOTAL VOLUME,BODY FLUID 800 mL
[2018-03-28 15:55] LABS: BODY FLUID RBC 375 /cu. mm.; BODY FLUID WBC 5870 /cu. mm.
[2018-03-28 16:10] LABS: BF LYMPHOCYTE 2 %
[2018-03-29] MEDS: INSULIN HUMULIN R 100 UNIT/ML 3ML SQ SCH ×4 (00:04→18:04)
[2018-03-29] MEDS: METHYLPREDNISOLONE SOD SUCC 40MG/ML 1ML IVP SCH ×3 (00:05→17:30)
[2018-03-29 00:44] LABS: ABG BASE EXCESS -11.1 mmol/L (-2.0-3.0); ABG HCO3 12.3 mmol/L (21.0-28.0); ABG PCO2 23 mmHg (32-45)
[2018-03-29] MEDS: MORPHINE SULFATE 4 MG/1ML SYG IVP PRN ×2 (00:47→05:18)
[2018-03-29 00:49] LABS: ABG BASE EXCESS -11.2 mmol/L (-2.0-3.0); ABG HCO3 11.7 mmol/L (21.0-28.0); ABG OXYGEN SATURATION 97.3 % (95.0-99.0); ABG PCO2 21 mmHg (32-45)
[2018-03-29 03:00] VITALS: BP 106/58
[2018-03-29 04:15] LABS: HEMATOCRIT 35.9 % (36-48); MEAN CORPUSCULAR HEMOGLOBIN 27.5 pg (27.0-33.0); MEAN CORPUSCULAR HGB CONC 33.3 g/dL (32.0-36.0); MEAN CORPUSCULAR VOLUME 82.5 fL (79-99); PLATELET COUNT (AUTO) 357 K/uL (130-400); RED BLOOD CELL COUNT(AUTO) 4.35 MIL/uL (4.00-5.50); RED CELL DISTRIBUTION WIDTH 21.2 % (11.0-15.5); WHITE BLOOD COUNT (AUTO) 29.6 K/uL (4.8-10.8)
[2018-03-29 04:33] LABS: CREATININE 1.8 mg/dL (0.5-1.5); POTASSIUM 4.7 mmol/L (3.5-5.1)
[2018-03-29] MEDS: IPRATROPIUM 0.5 MG/2.5 ML INH IH SCH ×4 (07:01→19:05)
[2018-03-29 08:24] VITALS: BP 107/49
[2018-03-29] MEDS: LEVOFLOXACIN 500 MG/D5W 100 ML 100 ML IV SCH (08:27)
[2018-03-29] MEDS ORDERED: MEROPENEM 500MG+NS 50ML 50 ML IV SCH (08:30)
[2018-03-29] MEDS: SODIUM CHLORIDE 0.9% 1000ML 1,000 ML IV SCH ×2 (08:57→21:17)
[2018-03-29] MEDS: MEROPENEM 500 MG VIAL IVP SCH ×2 (08:57→17:31)
[2018-03-29] MEDS: METOPROLOL TARTRATE 25 MG TAB PO SCH ×2 (08:58→21:00)
[2018-03-29 11:37] VITALS: BP 113/82
[2018-03-29 15:57] VITALS: BP 102/42
[2018-03-29] MEDS ORDERED: DIATR MEGLU/DIATRIZOATE SODIUM 30 ML BOTTLE ONE (16:07)
[2018-03-29 16:19] LABS: HEMATOCRIT 32.8 % (36-48)
[2018-03-29] MEDS ORDERED: ZOSYN 3.375GM+NS 50ML 50 ML IV ONE (17:24)
[2018-03-29] MEDS: ZOSYN 3.375GM+NS 50ML 50 ML IV SCH (18:06)
[2018-03-29 19:00] VITALS: BP 101/57
[2018-03-29 23:00] VITALS: BP 93/53
[2018-03-30] MEDS: METHYLPREDNISOLONE SOD SUCC 40MG/ML 1ML IVP SCH ×3 (00:39→21:00)
[2018-03-30] MEDS: MEROPENEM 500 MG VIAL IVP SCH ×3 (00:40→17:17)
[2018-03-30] MEDS: INSULIN HUMULIN R 100 UNIT/ML 3ML SQ SCH ×4 (00:59→18:00)
[2018-03-30 03:00] VITALS: BP 108/57
[2018-03-30] MEDS: ZOSYN 3.375GM+NS 50ML 50 ML IV SCH (06:25)
[2018-03-30] MEDS: IPRATROPIUM 0.5 MG/2.5 ML INH IH SCH ×4 (06:30→23:17)
[2018-03-30 07:18] LABS: HEMATOCRIT 32.3 % (36-48); MEAN CORPUSCULAR HEMOGLOBIN 26.7 pg (27.0-33.0); MEAN CORPUSCULAR HGB CONC 33.1 g/dL (32.0-36.0); MEAN CORPUSCULAR VOLUME 80.7 fL (79-99); PLATELET COUNT (AUTO) 328 K/uL (130-400); RED CELL DISTRIBUTION WIDTH 21.2 % (11.0-15.5)
[2018-03-30 07:44] LABS: B-TYPE NATRIURETIC PEPTIDE 81 pg/mL (0-100)
[2018-03-30 07:49] LABS: ALBUMIN 1.6 g/dL (3.5-5.0); BILIRUBIN,TOTAL 0.3 mg/dL (0.2-1.0); CREATININE 2.8 mg/dL (0.5-1.5); MAGNESIUM 1.9 mg/dL (1.80-2.40); POTASSIUM 4.4 mmol/L (3.5-5.1); TOTAL PROTEIN, SERUM 6.1 g/dL (6.0-8.3); URIC ACID 8.8 mg/dL (2.6-7.2)
[2018-03-30 08:00] VITALS: BP 116/64
[2018-03-30 08:26] LABS: LYMPHOCYTES % (MANUAL) 3 % (22-44); MONOCYTES % (MANUAL) 1 % (2-9); SEGMENTED NEUTROPHILS % 96 % (40-70)
[2018-03-30 08:28] LABS: MAN.DIFF COMMENT-IMPRESSION MANUAL DIFFERENTIAL; PLATELET MORPHOLOGY COMMENT ADEQUATE
[2018-03-30] MEDS: METOPROLOL TARTRATE 25 MG TAB PO SCH ×2 (09:00→20:32)
[2018-03-30 11:00] VITALS: BP 105/56
[2018-03-30] MEDS ORDERED: RENAL DOSE IV SCH (11:45)
[2018-03-30] MEDS: LEVOFLOXACIN 250 MG/D5W 50ML 50 ML IVPB SCH (13:00)
[2018-03-30 14:33] LABS: INR 1.02 (0.85-1.15); PROTHROMBIN TIME 10.7 SEC (9.6-11.6)
[2018-03-30 16:00] VITALS: BP 131/58
[2018-03-30] MEDS ORDERED: METOPROLOL TARTRATE 1 MG/ML 5ML VIAL IV SCH (16:45)
[2018-03-30] MEDS ORDERED: SODIUM CHLORIDE 0.9% 250 ML IV SCH (16:45)
[2018-03-30] MEDS ORDERED: METOPROLOL TARTRATE 1 MG/ML 5ML VIAL IV ONE (16:45)
[2018-03-30 20:00] VITALS: BP 133/65
[2018-03-30] MEDS: SODIUM BICARBONATE 650 MG TAB PEG SCH (20:32)
[2018-03-30 23:33] VITALS: BP 129/69
[2018-03-31] MEDS: MEROPENEM 500 MG VIAL IVP SCH ×3 (00:38→18:23)
[2018-03-31 03:20] VITALS: BP 112/50
[2018-03-31] MEDS: INSULIN HUMULIN R 100 UNIT/ML 3ML SQ SCH ×3 (06:00→12:00)
[2018-03-31 06:17] LABS: HEMATOCRIT 26.9 % (36-48); MEAN CORPUSCULAR HEMOGLOBIN 28.5 pg (27.0-33.0); MEAN CORPUSCULAR HGB CONC 35.1 g/dL (32.0-36.0); MEAN CORPUSCULAR VOLUME 81.2 fL (79-99); NUCLEATED RED BLOOD CELLS 0.2 % (0.0-0.19); PLATELET COUNT (AUTO) 298 K/uL (130-400); RED BLOOD CELL COUNT(AUTO) 3.31 MIL/uL (4.00-5.50); WHITE BLOOD COUNT (AUTO) 14.1 K/uL (4.8-10.8)
[2018-03-31 06:26] LABS: CREATININE 2.2 mg/dL (0.5-1.5); MAGNESIUM 2.1 mg/dL (1.80-2.40); PHOSPHORUS 4.3 mg/dL (2.5-4.9)
[2018-03-31] MEDS: IPRATROPIUM 0.5 MG/2.5 ML INH IH SCH ×3 (06:32→18:55)
[2018-03-31 07:49] LABS: LYMPHOCYTES % (MANUAL) 2 % (22-44); MAN.DIFF COMMENT-IMPRESSION MANUAL DIFFERENTIAL; MONOCYTES % (MANUAL) 7 % (2-9); SEGMENTED NEUTROPHILS % 91 % (40-70)
[2018-03-31 07:50] LABS: PLATELET MORPHOLOGY COMMENT ADEQUATE
[2018-03-31 08:00] VITALS: BP 125/62
[2018-03-31] MEDS: METOPROLOL TARTRATE 25 MG TAB PO SCH ×3 (09:00→20:55)
[2018-03-31] MEDS: SODIUM BICARBONATE 650 MG TAB PEG SCH ×3 (09:00→20:54)
[2018-03-31] MEDS: FAMOTIDINE/PF 20 MG/2 ML VIAL IV SCH (10:25)
[2018-03-31] MEDS: METHYLPREDNISOLONE SOD SUCC 40MG/ML 1ML IVP SCH ×2 (10:25→20:54)
[2018-03-31 16:00] VITALS: BP 128/61
[2018-03-31 16:12] LABS: APPEARANCE BODY FLUID TURBID (CLEAR); SPECIMENTYPE,BODY FLUID PLEURAL
[2018-03-31 16:13] LABS: COLOR,BODY FLUID BROWN (LT YELLOW); TOTAL VOLUME,BODY FLUID 60 mL
[2018-03-31 16:27] LABS: BODY FLUID RBC 500 /cu. mm.; BODY FLUID WBC 63 /cu. mm.
[2018-03-31 16:49] LABS: TRIGLYCERIDES,BODY FLUID 1302 mg/dL
[2018-03-31 17:00] LABS: BF LYMPHOCYTE 15 %; BF MONOCYTE 5 %
[2018-03-31] MEDS: LIDOCAINE HCL 1% 20 ML VIAL INJ SCH (18:23)
[2018-03-31 19:00] VITALS: BP 116/51
[2018-03-31 23:00] VITALS: BP 134/69
[2018-04-01] MEDS: IPRATROPIUM 0.5 MG/2.5 ML INH IH SCH ×5 (00:10→23:20)
[2018-04-01] MEDS: MEROPENEM 500 MG VIAL IVP SCH ×3 (00:46→15:21)
[2018-04-01 03:00] VITALS: BP 163/83
[2018-04-01 04:52] LABS: HEMATOCRIT 28.3 % (36-48); MEAN CORPUSCULAR HEMOGLOBIN 27.3 pg (27.0-33.0); MEAN CORPUSCULAR HGB CONC 34.2 g/dL (32.0-36.0); MEAN CORPUSCULAR VOLUME 79.8 fL (79-99); NUCLEATED RED BLOOD CELLS 0.3 % (0.0-0.19); PLATELET COUNT (AUTO) 302 K/uL (130-400); RED BLOOD CELL COUNT(AUTO) 3.55 MIL/uL (4.00-5.50); RED CELL DISTRIBUTION WIDTH 21.3 % (11.0-15.5); WHITE BLOOD COUNT (AUTO) 9.9 K/uL (4.8-10.8)
[2018-04-01 04:59] LABS: CREATININE 1.9 mg/dL (0.5-1.5); POTASSIUM 4.3 mmol/L (3.5-5.1)
[2018-04-01 05:04] LABS: LYMPHOCYTES % (MANUAL) 12 % (22-44); MAN.DIFF COMMENT-IMPRESSION MANUAL DIFFERENTIAL; MONOCYTES % (MANUAL) 3 % (2-9); PLATELET MORPHOLOGY COMMENT ADEQUATE; SEGMENTED NEUTROPHILS % 85 % (40-70)
[2018-04-01] MEDS: INSULIN HUMULIN R 100 UNIT/ML 3ML SQ SCH ×4 (06:00→18:00)
[2018-04-01 08:00] VITALS: BP 156/83
[2018-04-01] MEDS ORDERED: DEXTROSE 5 %-0.45 % NACL 1,000 ML IV SCH (09:06)
[2018-04-01] MEDS ORDERED: METOPROLOL TARTRATE 1 MG/ML 5ML VIAL IV PRN (09:15)
[2018-04-01] MEDS ORDERED: DEXTROSE 5 %-0.45 % NACL 1,000 ML IV ONE (09:27)
[2018-04-01] MEDS: FAMOTIDINE/PF 20 MG/2 ML VIAL IV SCH (10:34)
[2018-04-01] MEDS: METHYLPREDNISOLONE SOD SUCC 40MG/ML 1ML IVP SCH ×2 (10:34→20:29)
[2018-04-01] MEDS: SODIUM BICARBONATE 650 MG TAB PEG SCH ×2 (10:35→20:28)
[2018-04-01] MEDS: METOPROLOL TARTRATE 25 MG TAB PO SCH ×2 (10:35→20:28)
[2018-04-01 12:00] VITALS: BP 131/89
[2018-04-01] MEDS ORDERED: DIATR MEGLU/DIATRIZOATE SODIUM 30 ML BOTTLE ONE (13:02)
[2018-04-01] MEDS: LIDOCAINE HCL 1% 20 ML VIAL INJ SCH (13:15)
[2018-04-01] MEDS: LEVOFLOXACIN 250 MG/D5W 50ML 50 ML IVPB SCH (15:20)
[2018-04-01 15:51] LABS: AMYLASE,BODY FLUID 10 U/L
[2018-04-01 16:00] VITALS: BP 155/74
[2018-04-01 19:10] VITALS: BP 156/82
[2018-04-01] MEDS ORDERED: INSULIN GLARGINE 100 UNITS/ML 10 ML VIAL SQ SCH (21:00)
[2018-04-02 00:10] VITALS: BP 148/69
[2018-04-02] MEDS: MEROPENEM 500 MG VIAL IVP SCH ×2 (01:47→09:56)
[2018-04-02 04:40] VITALS: BP 114/72
[2018-04-02 04:48] LABS: BASOPHILS % (AUTO) 0.1 % (0.0-5.0); HEMATOCRIT 27.6 % (36-48); LYMPHOCYTES % (AUTO) 7.6 % (21.0-51.0); MEAN CORPUSCULAR HEMOGLOBIN 27.8 pg (27.0-33.0); MEAN CORPUSCULAR HGB CONC 34.6 g/dL (32.0-36.0); MEAN CORPUSCULAR VOLUME 80.3 fL (79-99); MONOCYTES % (AUTO) 4.1 % (3.0-13.0); NEUTROPHILS % (AUTO) 88.2 % (40.0-77.0); NUCLEATED RED BLOOD CELLS 0.1 % (0.0-0.19); PLATELET COUNT (AUTO) 278 K/uL (130-400); RED BLOOD CELL COUNT(AUTO) 3.43 MIL/uL (4.00-5.50); RED CELL DISTRIBUTION WIDTH 21.4 % (11.0-15.5); WHITE BLOOD COUNT (AUTO) 9.5 K/uL (4.8-10.8)
[2018-04-02 05:00] LABS: CREATININE 1.6 mg/dL (0.5-1.5); POTASSIUM 3.9 mmol/L (3.5-5.1)
[2018-04-02] MEDS: INSULIN HUMULIN R 100 UNIT/ML 3ML SQ SCH ×4 (06:00→12:00)
[2018-04-02] MEDS: IPRATROPIUM 0.5 MG/2.5 ML INH IH SCH ×2 (06:21→11:34)
[2018-04-02] MEDS: MORPHINE SULFATE 4 MG/1ML SYG IVP PRN (06:22)
[2018-04-02 08:46] VITALS: BP 137/80
[2018-04-02] MEDS: METOPROLOL TARTRATE 25 MG TAB PO SCH (09:00)
[2018-04-02] MEDS: SODIUM BICARBONATE 650 MG TAB PEG SCH (09:00)
[2018-04-02] MEDS: METHYLPREDNISOLONE SOD SUCC 40MG/ML 1ML IVP SCH (09:56)
[2018-04-02] MEDS: FAMOTIDINE/PF 20 MG/2 ML VIAL IV SCH (09:56)
[2018-04-02 11:12] VITALS: BP 132/78
[2018-04-02 12:51] LABS: SODIUM SERUM 155 mmol/L (136-145)
[2018-04-02 12:54] LABS: CHLORIDE 122 mmol/L (101-111)
[2018-04-02] MEDS: LIDOCAINE HCL 1% 20 ML VIAL INJ SCH (13:15)
[2018-04-02 15:53] VITALS: BP 134/79
== END 2018-04-02 18:03 | disposition hospice, home (50) | DRG 871 ==
LOC: EDH 02:24 → OBSVTOIN 04:20 → EDHIP 04:20 → 3BH 20:17
PROVIDERS: ADMIT Family Medicine; ATTEND Family Medicine
PROC: 5A09357 Assistance with Respiratory Ventilation, Less than 24 Consecutive Hours, Continuous Positive Airway Pressure (ICD-10-PCS; principal; 2018-03-29)
PROC: 0W9930Z Drainage of Right Pleural Cavity with Drainage Device, Percutaneous Approach (ICD-10-PCS; 2018-03-31)
DX: A41.9 Sepsis, unspecified organism (principal); J96.01 Acute respiratory failure with hypoxia; N17.0 Acute kidney failure with tubular necrosis; J86.9 Pyothorax without fistula; J18.9 Pneumonia, unspecified organism; J90 Pleural effusion, not elsewhere classified; E87.0 Hyperosmolality and hypernatremia; E87.2 Acidosis; E11.21 Type 2 diabetes mellitus with diabetic nephropathy; E66.01 Morbid (severe) obesity due to excess calories; K94.21 Gastrostomy hemorrhage; Z68.43 Body mass index [BMI] 50.0-59.9, adult; K94.23 Gastrostomy malfunction; R65.20 Severe sepsis without septic shock; R13.10 Dysphagia, unspecified; Z66 Do not resuscitate; D64.9 Anemia, unspecified; E78.5 Hyperlipidemia, unspecified; I10 Essential (primary) hypertension; I25.10 Atherosclerotic heart disease of native coronary artery without angina pectoris; E03.9 Hypothyroidism, unspecified; E11.22 Type 2 diabetes mellitus with diabetic chronic kidney disease; G47.33 Obstructive sleep apnea (adult) (pediatric); I12.9 Hypertensive chronic kidney disease with stage 1 through stage 4 chronic kidney disease, or unspecified chronic kidney disease; M19.90 Unspecified osteoarthritis, unspecified site; M81.0 Age-related osteoporosis without current pathological fracture; N18.9 Chronic kidney disease, unspecified; Z51.5 Encounter for palliative care
CPT/HCPCS: 32555; 36415; 36600; 71045; 71250; 71275; 72070; 72100; 74150; 74176; 74230; 76770; 80048; 80053; 81003; 82150; 82435; 82550; 82803; 82945; 82948; 83605; 83615; 83690; 83735; 83880; 83986; 84100; 84157; 84295; 84478; 84484; 84550; 85014; 85018; 85025; 85027; 85378; 85610; 85730; 87040; 87071; 87088; 87103; 87116; 87205; 87206; 88108; 88305; 89051; 92610; 92611; 93005; 93306; 93970; 94640; 94660; 94664; A4218; A4344; J1650; J1815; J1885; J1956; J2185; J2270; J2543; J2920; J3490; J7030; J7042; Q9963; Q9967